=== PATIENT | female | born 1945 | race Caucasian/White ===

== ENCOUNTER 2016-05-04 14:53 | Outpatient (CLI) | payer MEDICARE | END 2016-05-04 14:54 | disposition home or self-care (01) | DX: Z78.0 Asymptomatic menopausal state (principal) ==

== ENCOUNTER 2016-08-30 10:41 | Outpatient (CLI) | payer MEDICARE | END 2016-08-30 10:42 | disposition home or self-care (01) | DX: Z12.31 Encounter for screening mammogram for malignant neoplasm of breast (principal); Z80.3 Family history of malignant neoplasm of breast ==

== ENCOUNTER 2016-12-12 08:23 | Outpatient (CLI) | payer MEDICARE ==
[2016-12-12 13:01] LABS: BASOPHILS # (AUTO) 0.1 10^3/uL (0.0-0.1); EOSINOPHILS # (AUTO) 0.2 10^3/uL (0.0-0.7); EOSINOPHILS % (AUTO) 3.4 %; HCT - HEMATOCRIT 41.2 % (37.0-47.0); LYMPHOCYTES # (AUTO) 2.3 10^3/uL (1.5-3.5); LYMPHOCYTES % (AUTO) 32.7 %; MEAN CORPUSCULAR HEMOGLOBIN 30.8 pg (27.0-31.0); MEAN CORPUSCULAR HGB CONC 33.9 g/dL (32.0-36.0); MEAN CORPUSCULAR VOLUME 90.9 fL (81.0-99.0); MONOCYTES # (AUTO) 0.6 10^3/uL (0.0-1.0); MONOCYTES % (AUTO) 7.9 %; RED BLOOD COUNT 4.52 10^6/uL (4.20-5.40); RED CELL DISTRIBUTION WIDTH 12.8 % (12.0-15.0); UNCORRECTED WHITE BLOOD COUNT 7.2 x10^3/uL; WHITE BLOOD COUNT 7.2 x10^3/uL (4.8-10.8)
[2016-12-12 13:27] LABS: ALBUMIN/GLOBULIN RATIO 1.2 (1.0-2.2); BILIRUBIN,TOTAL 0.5 mg/dL (0.2-1.0); BUN - BLOOD UREA NITROGEN 19 mg/dL (6-20); CALCIUM 8.9 mg/dL (8.5-10.3); CARBON DIOXIDE - CO2 29 mmol/L (21-32); CHLORIDE 102 mmol/L (101-111); CHOL/HDL RATIO 5.6 (<4.4); CHOLESTEROL 237 mg/dL; CREATININE 0.8 mg/dL (0.4-1.0); GFR - MDRD 71 (>89); GLUCOSE 145 mg/dL (70-100); HDL CHOLESTEROL 42 mg/dL; LDL/HDL RATIO 3.2 (<4.4); POTASSIUM 4.6 mmol/L (3.5-5.0); SODIUM 138 mmol/L (135-145); TOTAL PROTEIN 7.3 g/dL (6.7-8.2); TRIGLYCERIDES 298 mg/dL; VLDL CHOLESTEROL 60 mg/dL
[2016-12-12 14:26] LABS: HEMOGLOBIN A1C 0.7 g/dL
== END 2016-12-12 08:24 | disposition home or self-care (01) ==
LOC: LAB.WCP 08:23
PROVIDERS: ATTEND Family Medicine
DX: R73.01 Impaired fasting glucose (principal); Z78.0 Asymptomatic menopausal state; H91.93 Unspecified hearing loss, bilateral
CPT/HCPCS: 36415; 80053; 80061; 83036; 84443; 85025

== ENCOUNTER 2017-07-26 08:00 | Outpatient (CLI) | payer MEDICARE ==
[2017-07-26 13:02] LABS: HB2 TOTAL 14.8 g/dL; HEMOGLOBIN A1C 0.82 g/dL; HEMOGLOBIN A1C % 7.2 % (4.6-6.2)
[2017-07-26 13:08] LABS: ALBUMIN 3.9 g/dL (3.2-5.5); ALBUMIN/GLOBULIN RATIO 1.3 (1.0-2.2); ALKALINE PHOSPHATASE 43 IU/L (42-121); ALT ALANINE AMINOTRANSFERASE 39 IU/L (10-60); AST ASPARTATE AMINOTRANSFERASE 28 IU/L (10-42); BILIRUBIN,TOTAL 0.3 mg/dL (0.2-1.0); BUN - BLOOD UREA NITROGEN 19 mg/dL (6-20); CALCIUM 8.7 mg/dL (8.5-10.3); CARBON DIOXIDE - CO2 25 mmol/L (21-32); CHLORIDE 104 mmol/L (101-111); CHOL/HDL RATIO 4.5 (<4.4); CHOLESTEROL 200 mg/dL; CREATININE 0.8 mg/dL (0.4-1.0); GFR - MDRD 71 (>89); GLUCOSE 161 mg/dL (70-100); HDL CHOLESTEROL 44 mg/dL; LDL CHOLESTEROL,CALCULATED 115 mg/dL; LDL/HDL RATIO 2.6 (<4.4); SODIUM 136 mmol/L (135-145); VLDL CHOLESTEROL 41 mg/dL
== END 2017-07-26 08:01 | disposition home or self-care (01) ==
LOC: LAB.WCP 08:00
PROVIDERS: ATTEND Family Medicine
DX: B35.1 Tinea unguium (principal); E78.5 Hyperlipidemia, unspecified; R73.01 Impaired fasting glucose; Z79.890 Hormone replacement therapy; Z79.899 Other long term (current) drug therapy
CPT/HCPCS: 36415; 80053; 80061; 83036; 83721

== ENCOUNTER 2017-09-03 10:07 | Outpatient (CLI) | payer MEDICARE ==
--- NOTE | 2017-09-04 16:21 | Mammography Report ---
DIGITAL SCREENING MAMMOGRAM: 09/03/2017 CLINICAL INDICATION: A 71-year-old with family history of breast cancer for screening. COMPARISON: 08/2016, 06/2015, 12/2013, 11/2012, 06/2011, 04/2010. TECHNIQUE: Routine CC and MLO projections were obtained of the breasts. FINDINGS: Parenchymal tissue within the breasts is predominantly fatty replaced. There are no dominant masses, suspicious microcalcifications, or secondary signs of malignancy. In comparison to the previous studies, there are no significant changes. IMPRESSION: NO MAMMOGRAPHIC EVIDENCE OF MALIGNANCY. NO SIGNIFICANT INTERVAL CHANGES. RECOMMENDATION: Screening mammography is recommended annually. BIRADS category 1 - negative. STANDARD QUALIFYING STATEMENTS: 1. This examination was reviewed with the aid of Computed-Aided Detection (CAD). 2. A negative or benign imaging report should not delay biopsy if clinically suspicious findings are present. Consider surgical consultation if warranted. More than 5% of cancers are not identified by imaging. 3. Dense breasts may obscure an underlying neoplasm. TD: 09/04/2017 16:20
== END 2017-09-03 10:08 | disposition home or self-care (01) ==
LOC: DI.N 10:07
PROVIDERS: ATTEND Family Medicine
DX: Z12.31 Encounter for screening mammogram for malignant neoplasm of breast (principal); Z80.3 Family history of malignant neoplasm of breast
CPT/HCPCS: 77067

== ENCOUNTER 2018-04-18 12:49 | Outpatient (CLI) | payer MEDICARE | END 2018-04-18 12:50 | disposition home or self-care (01) | LOC: NS 12:49 | PROVIDERS: ATTEND Physician Assistant Medical | DX: Z71.3 Dietary counseling and surveillance (principal); E11.9 Type 2 diabetes mellitus without complications; Z79.84 Long term (current) use of oral hypoglycemic drugs | CPT/HCPCS: 97802 ==

== ENCOUNTER 2018-09-05 08:51 | Outpatient (CLI) | payer MEDICARE, OTHER ==
--- NOTE | 2018-09-05 14:00 | Mammography Report ---
Reason: SCREENING MAMMO Procedure Date: 09/05/2018 Accession Number: [id number] / [id number] Procedure: MGN - Screening Mammo Dig Bilat CPT Code: FULL RESULT: EXAM: Screening Mammo Dig Bilat DATE: 09/05/2018 9:20 AM CLINICAL HISTORY: Screening examination. Family history of breast cancer in the mother at age 75. The patient relates a history of 40 years of hormone therapy. TECHNIQUE: (B) - Bilateral CC and MLO views were obtained. COMPARISON: 09/03/2017 through 06/29/2015. PARENCHYMAL PATTERN: (A) - The breast(s) demonstrate(s) scattered fibroglandular densities. FINDINGS: There are coarse typically benign calcifications. There are no suspicious masses, calcifications, or areas of distortion. IMPRESSION: Benign findings. BI-RADS category 2. RECOMMENDATION: (ANNUAL) - Recommend routine annual screening mammography. BI-RADS CATEGORY: (2) - Benign Findings. STANDARD QUALIFYING STATEMENTS: 1. This examination was not reviewed with the aid of Computer-Aided Detection (CAD). 2. A negative or benign imaging report should not preclude biopsy if clinically suspicious findings are present. 3. Dense breasts may obscure an underlying neoplasm. 4. This examination was reviewed without the aid of 3D breast imaging (tomosynthesis).
== END 2018-09-05 08:52 | disposition home or self-care (01) ==
LOC: DI.N 08:51
DX: Z12.31 Encounter for screening mammogram for malignant neoplasm of breast (principal); Z80.3 Family history of malignant neoplasm of breast
CPT/HCPCS: 77067

== ENCOUNTER 2018-12-05 11:45 | Emergency (ER) | payer MEDICARE, OTHER ==
--- NOTE | 2018-12-05 12:02 | ED Physician Documentation ---
PD HPI ABD PAIN - Stated complaint Stated Complaint: NAUSEA/VOMITING - Chief complaint Chief Complaint: Abd Pain - History of Present Illness Timing - onset: How many days ago (4) Timing - duration: Days Timing - details: Still present Pain level max: 0 Pain level now: 0 Associated symptoms: Nausea, Vomiting, Diarrhea, Dizzy, Loss of appetite. No: Fever, Hematemesis, Constipation, Dysuria, Hematuria, Chest pain Similar symptoms before: Other (Patient had similar symptoms back in May and was told to discontinue her metformin which she did. She has not had any further blood sugar test since discontinuing her metformin and the symptoms had resolved.) Recently seen: Not recently seen (She called her primary care provider's office this morning was told by the staff to come to the emergency department because she could be dehydrated.) - Additional information Additional information: This is a 73-year-old woman who presents with her with complaints that 4 days ago she started a green smoothie detox it consists of fresh fruits and nuts that are mixed into a smoothie. This is supposed to be a 10-day cleanse and this is the only thing that she is consumed in the past 4 days. She immediately started feeling some nausea having some dry heaving and then this morning she started vomiting even when she drank water. She denies any pain. She feels like she has no energy and is "foggy". She is felt dizzy. She felt feverish but did not check her temperature yesterday. She has been experiencing some cardiac palpitations and shortness of breath with exertion but denied chest pain. She takes losartan and a baby aspirin daily. Patient had similar symptoms back in May. At that time she was told to discontinue her metformin which she did and the symptoms resolved. She also reports diarrhea for the past several weeks off and on without recent use of antibiotics. She status post hysterectomy and cholecystectomy. Denies history of diverticulitis. No other current acute illness. Review of Systems Constitutional: reports: Chills. denies: Fever Ears: denies: Ear pain Nose: denies: Rhinorrhea / runny nose Throat: denies: Sore throat Cardiac: reports: Palpitations. denies: Chest pain / pressure, Pedal edema Respiratory: reports: Dyspnea (With exertion). denies: Cough GI: reports: Nausea, Vomiting, Diarrhea. denies: Abdominal Pain, Hematemesis : denies: Dysuria Neurologic: reports: Generalized weakness. 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 - Present Medications Home Medications: Ambulatory Orders Medication Instructions Recorded Confirmed Aspirin 81 mg PO DAILY 09/17/17 09/17/17 Cholecalciferol (Vitamin D3) 2,000 unit PO DAILY 09/17/17 09/17/17 [Vitamin D] Estropipate 1.5 mg PO DAILY 09/17/17 09/17/17 Losartan Potassium 25 mg PO DAILY 09/17/17 09/17/17 Metformin HCl [Metformin HCl ER] 500 mg PO DAILY 09/17/17 09/17/17 [place]-3/Dha/Epa/Fish Oil [Fish Oil 1 each PO DAILY 09/17/17 09/17/17 1,000 mg Softgel] Potassium &Magnesium Aspartate [Ra 1 each PO DAILY 09/17/17 09/17/17 Potassium-Magnesium Asp 250] Metoclopramide [Reglan] 10 mg PO ACHS #20 tablet 12/05/18 - Allergies Allergies/Adverse Reactions: Allergies Allergy/AdvReac Type Severity Reaction Status Date / Time acetaminophen [From Vicodin] AdvReac Intermediate cannot Verified 09/17/17 16:41 wake up hydrocodone [From Vicodin] AdvReac Intermediate cannot Verified 09/17/17 16:41 wake up - Social History Does the pt smoke?: No Smoking Status: Never smoker Does the pt drink ETOH?: No Does the pt have substance abuse?: No - Immunizations Immunizations are current?: Yes PD ED PE NORMAL - Vitals Vital signs reviewed: Yes - General General: Alert and oriented X 3 - HEENT HEENT: Atraumatic, PERRL, Moist mucous membranes, Pharynx benign - Neck Neck: Supple, no meningeal sign - Cardiac Cardiac: RRR, No murmur, No rub, Strong equal pulses - Respiratory Respiratory: No respiratory distress, Clear bilaterally - Abdomen Abdomen: Normal bowel sounds, Soft, Non tender, Non distended, No organomegaly - Derm Derm: Normal color, Warm and dry - Extremities Extremities: No edema - Neuro Neuro: Alert and oriented X 3, Normal speech, Other (No gross neurological deficits.) - Psych Psych: Normal mood, Normal affect Results - Vitals Vitals: Vital Signs - 24 hr 12/05/18 12/05/18 11:51 14:25 Temperature 36.3 C L 36.6 C Heart Rate 76 67 Respiratory 18 12 Rate Blood Pressure 143/73 H 149/50 H O2 Saturation 98 98 Oxygen O2 Source Room air - EKG (time done) 1228 Rate: Rate (enter#) Rhythm: Sinus bradycardia Intervals: Normal MS QRS: Normal Ischemia: Normal ST segments Compare to prior EKG: Old EKG unavailable - Labs Labs: Laboratory Tests 12/05/18 12/05/18 12/05/18 12:20 13:00 13:00 WBC 9.9 RBC 4.82 Hgb 15.0 Hct 43.2 MCV 89.6 MCH 31.1 H MCHC 34.7 RDW 12.3 Plt Count 250 MPV 9.6 Neut # (Auto) 6.3 Lymph # (Auto) 2.3 [place] # (Auto) 0.7 Eos # (Auto) 0.5 Baso # (Auto) 0.1 Absolute Nucleated RBC 0.00 Nucleated RBC % 0.0 Sodium 137 Potassium 4.1 Chloride 102 Carbon Dioxide 22 Anion Gap 13.0 BUN 16 Creatinine 0.8 Estimated GFR (MDRD) 71 L Glucose 114 H Calcium 8.7 Troponin I High Sens Urine Color YELLOW Urine Clarity CLEAR Urine pH 5.5 Ur Specific [place] >=1.030 H Urine Protein NEGATIVE Urine Glucose (UA) NEGATIVE Urine Ketones >=80 H Urine Occult Blood TRACE-LYSE Urine Nitrite NEGATIVE Urine Bilirubin NEGATIVE Urine Urobilinogen 0.2 (NORMAL) Ur Leukocyte Esterase SMALL H Urine RBC 0-5 Urine WBC 6-10 H Ur Squamous Epith Cells MOD Squamous H Urine Bacteria Few Ur Microscopic Review INDICATED Urine Culture Comments NOT INDICATED 12/05/18 13:00 WBC RBC Hgb Hct MCV MCH MCHC RDW Plt Count MPV Neut # (Auto) Lymph # (Auto) [place] # (Auto) Eos # (Auto) Baso # (Auto) Absolute Nucleated RBC Nucleated RBC % Sodium Potassium Chloride Carbon Dioxide Anion Gap BUN Creatinine Estimated GFR (MDRD) Glucose Calcium Troponin I High Sens 8.1 Urine Color Urine Clarity Urine pH Ur Specific [place] Urine Protein Urine Glucose (UA) Urine Ketones Urine Occult Blood Urine Nitrite Urine Bilirubin Urine Urobilinogen Ur Leukocyte Esterase Urine RBC Urine WBC Ur Squamous Epith Cells Urine Bacteria Ur Microscopic Review Urine Culture Comments PD MEDICAL DECISION MAKING - ED course Complexity details: reviewed results, re-evaluated patient, d/w patient, d/w family (The patient was given a4 mg grams of Zofran IV. Her CBC was normal, the BMP was essentially normal, her glucose was 114. Urinalysis was contaminated and not considered necessary to culture it. She does not really have any urinary symptoms anyway. A trial of water was given after the Zofran and she said she again felt kind of bloated and nauseous. We will give her Reglan. There is no indication she has a surgical abdomen. We will reevaluate following the Reglan.) ED course: 1541: Patient does feel better after the Reglan. She was able to drink some water. She was belching. She reports that she is been feeling that, nausea and urged to go to the bathroom to have a bowel movement immediately after eating for several months now. She is been having this diarrhea. Of encouraged her to follow-up with her primary care provider perhaps evaluation with gastroenterology would be in order to sort out the symptoms. For symptom management in a place her on Reglan and have her stop the green smoothie detox currently. Patient states understanding and is encouraged to follow-up as needed. Departure - Departure Disposition: 01 Home, Self Care Clinical Impression: Nausea and vomiting Qualifiers: Vomiting type: unspecified Vomiting Intractability: unspecified Qualified Code(s): R11.2 - Nausea with vomiting, unspecified Condition: Good Instructions: ED Nausea Vomiting Follow-Up: Eldon Bagley MD [Primary Care Provider] - Prescriptions: Metoclopramide [Reglan] 10 mg PO ACHS #20 tablet Comments: Take the Reglan 30 minutes prior to meals as needed. May also use it at bedtime if you are feeling nauseous. Stop the green smoothie detox for the time being. Call and schedule an appointment with your primary care provider for follow-up and further work-up of your diarrhea and nausea. Return to the emergency department if you develop abdominal pain, you are vomiting and cannot keep anything down or develop fever.
[2018-12-05] MEDS ORDERED: ONDANSETRON 4 MG/2 ML VIAL IVP STA (12:13)
[2018-12-05] MEDS ORDERED: SODIUM CHLORIDE 0.9% 1,000 ML IV ONE (12:13)
[2018-12-05 13:12] LABS: BASOPHILS # (AUTO) 0.1 10^3/uL (0.0-0.1); BASOPHILS % (AUTO) 0.5 %; EOSINOPHILS # (AUTO) 0.5 10^3/uL (0.0-0.7); EOSINOPHILS % (AUTO) 4.5 %; LYMPHOCYTES # (AUTO) 2.3 10^3/uL (1.5-3.5); LYMPHOCYTES % (AUTO) 23.6 %; MEAN CORPUSCULAR HEMOGLOBIN 31.1 pg (27.0-31.0); MEAN CORPUSCULAR HGB CONC 34.7 g/dL (32.0-36.0); MEAN CORPUSCULAR VOLUME 89.6 fL (81.0-99.0); MEAN PLATELET VOLUME 9.6 fL (7.9-10.8); MONOCYTES # (AUTO) 0.7 10^3/uL (0.0-1.0); MONOCYTES % (AUTO) 7.1 %; NEUTROPHILS # (AUTO) 6.3 10^3/uL (1.5-6.6); PLT - PLATELET COUNT 250 10^3/uL (130-450); RED BLOOD COUNT 4.82 10^6/uL (4.20-5.40); RED CELL DISTRIBUTION WIDTH 12.3 % (12.0-15.0); WHITE BLOOD COUNT 9.9 x10^3/uL (4.8-10.8)
[2018-12-05 13:28] LABS: CALCIUM 8.7 mg/dL (8.5-10.3); CREATININE 0.8 mg/dL (0.4-1.0)
[2018-12-05 13:50] LABS: GLUCOSE, URINE (UA) NEGATIVE (NEGATIVE); KETONES,URINE (UA) >=80 mg/dL (NEGATIVE); LEUKOCYTE ESTERASE, URINE SMALL (NEGATIVE); NITRITE,URINE NEGATIVE (NEGATIVE); OCCULT BLOOD,URINE TRACE-LYSE (NEGATIVE); PH,URINE 5.5 PH (5.0-7.5); PROTEIN,URINE NEGATIVE (NEGATIVE); UROBILINOGEN,URINE 0.2 (NORMAL) E.U./dL (NORMAL)
[2018-12-05 13:53] LABS: CLARITY,URINE CLEAR (CLEAR)
[2018-12-05 13:54] LABS: BILIRUBIN,URINE NEGATIVE (NEGATIVE); ICTOTEST,URINE NEGATIVE
[2018-12-05 14:10] LABS: BACTERIA,URINE Few /HPF (None Seen); RBC,URINE 0-5 /HPF (0-5); SQUAMOUS EPITHELIAL CELL,UR MOD Squamous (<= Few)
[2018-12-05 14:26] VITALS: BP 149/50
[2018-12-05] MEDS ORDERED: METOCLOPRAMIDE 10 MG/2 ML VIAL IVP STA (14:45)
== END 2018-12-05 15:55 | disposition home or self-care (01) ==
LOC: ED 11:45
DX: R11.2 Nausea with vomiting, unspecified (principal); R19.7 Diarrhea, unspecified; R00.1 Bradycardia, unspecified; E11.9 Type 2 diabetes mellitus without complications; Z79.84 Long term (current) use of oral hypoglycemic drugs; I10 Essential (primary) hypertension; Z79.82 Long term (current) use of aspirin
CPT/HCPCS: 36415; 80048; 81001; 85025; 93005; 96361; 96374; 96375; 99284; J2765; 81003; 84484; 87086

== ENCOUNTER 2018-12-20 08:20 | Outpatient (CLI) | payer MEDICARE, OTHER ==
--- NOTE | 2018-12-20 10:56 | Ultrasound Report ---
Reason: GASTRITIS Procedure Date: 12/20/2018 Accession Number: [id number] / [id number] Procedure: US - Abdomen Limited CPT Code: FULL RESULT: EXAM: ABDOMEN ULTRASOUND LIMITED, RUQ EXAM DATE: 12/20/2018 09:10 AM. CLINICAL HISTORY: Gastritis. COMPARISON: None. TECHNIQUE: Real-time scanning was performed with static images obtained. FINDINGS: Liver: The liver is diffusely echogenic in appearance suggesting fibrofatty infiltration. No suspicious lesions or masses are identified. The liver measures 16.4 cm. Main portal vein flow: Hepatopetal. Gallbladder: Surgically absent. Biliary System: CBD measures 5 mm. No intrahepatic or extrahepatic ductal dilatation. Other: None. IMPRESSION: Fatty change of the liver status post cholecystectomy. No biliary dilation demonstrated. RADIA
== END 2018-12-20 08:21 | disposition home or self-care (01) ==
LOC: DI 08:20
PROVIDERS: ATTEND Family Medicine
DX: K76.0 Fatty (change of) liver, not elsewhere classified (principal); Z90.49 Acquired absence of other specified parts of digestive tract
CPT/HCPCS: 76705

== ENCOUNTER 2019-03-11 08:00 | Outpatient (CLI) | payer MEDICARE, OTHER ==
[2019-03-11 13:20] LABS: ALBUMIN 3.9 g/dL (3.2-5.5); ALBUMIN/GLOBULIN RATIO 1.2 (1.0-2.2); BILIRUBIN,TOTAL 0.5 mg/dL (0.2-1.0); CALCIUM 8.8 mg/dL (8.5-10.3); CREATININE 0.8 mg/dL (0.4-1.0); TOTAL PROTEIN 7.2 g/dL (6.7-8.2)
[2019-03-11 13:28] LABS: HB2 TOTAL 13.5 g/dL; HEMOGLOBIN A1C 0.63 g/dL; HEMOGLOBIN A1C % 6.4 % (4.6-6.2)
[2019-03-11 13:36] LABS: CREATININE,URINE 76.8 mg/dL
[2019-03-11 13:45] LABS: MICROALBUMIN,URINE < 0.2 mg/dL (0-300.0)
== END 2019-03-11 23:59 | disposition home or self-care (01) ==
LOC: LAB.WCP 08:00
PROVIDERS: ATTEND Family Medicine
DX: L21.9 Seborrheic dermatitis, unspecified (principal); E11.9 Type 2 diabetes mellitus without complications; E78.5 Hyperlipidemia, unspecified
CPT/HCPCS: 36415; 80053; 82043; 82570; 83036

== ENCOUNTER 2019-10-13 16:45 | Emergency (ER) | payer MEDICARE, OTHER ==
[2019-10-13 16:56] VITALS: BP 177/53
--- NOTE | 2019-10-13 17:01 | ED Physician Documentation ---
PD HPI UPPER EXT INJURY - Stated complaint Stated Complaint: LT THUMB LAC - Chief complaint Chief Complaint: Laceration - History obtained from History obtained from: Patient (She cut her left pinky finger with a knife yesterday and has persistent bleeding when she removes the Band-Aid) Review of Systems Constitutional: reports: Reviewed and negative Ears: reports: Reviewed and negative Nose: reports: Reviewed and negative PD PAST MEDICAL HISTORY - Past Medical History Cardiovascular: Hypertension, High cholesterol Endocrine/Autoimmune: Type 2 diabetes Psych: Depression - Past Surgical History 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 - Present Medications Home Medications: Ambulatory Orders Medication Instructions Recorded Confirmed Aspirin 81 mg PO DAILY 09/17/17 09/17/17 Cholecalciferol (Vitamin D3) 2,000 unit PO DAILY 09/17/17 09/17/17 [Vitamin D] Estropipate 1.5 mg PO DAILY 09/17/17 09/17/17 Losartan Potassium 25 mg PO DAILY 09/17/17 09/17/17 Metformin HCl [Metformin HCl ER] 500 mg PO DAILY 09/17/17 09/17/17 [place]-3/Dha/Epa/Fish Oil [Fish Oil 1 each PO DAILY 09/17/17 09/17/17 1,000 mg Softgel] Potassium &Magnesium Aspartate [Ra 1 each PO DAILY 09/17/17 09/17/17 Potassium-Magnesium Asp 250] Metoclopramide [Reglan] 10 mg PO ACHS #20 tablet 12/05/18 - Allergies Allergies/Adverse Reactions: Allergies Allergy/AdvReac Type Severity Reaction Status Date / Time acetaminophen [From Vicodin] AdvReac Intermediate cannot Verified 10/13/19 16:52 wake up hydrocodone [From Vicodin] AdvReac Intermediate cannot Verified 10/13/19 16:52 wake up - Social History Does the pt smoke?: No Smoking Status: Never smoker Does the pt drink ETOH?: No Does the pt have substance abuse?: No - Immunizations Immunizations are current?: Yes PD ED PE NORMAL - Vitals Vital signs reviewed: Yes - General General: Alert and oriented X 3, No acute distress - Extremities Extremities: Other (There is a very shallow laceration through the pulp and tip of the pinky, it is hemostatic on my examination without distal neurovascular compromise; It does not require suturing or any specific wound care other than dressing) - Neuro Neuro: Alert and oriented X 3, Normal speech Results - Vitals Vitals: Vital Signs - 24 hr 10/13/19 16:52 Temperature 36.8 C Heart Rate 65 Respiratory 16 Rate Blood Pressure 177/53 H O2 Saturation 99 Oxygen O2 Source Room air Departure - Departure Disposition: 01 Home, Self Care Clinical Impression: Laceration Condition: Good Record reviewed to determine appropriate education?: Yes Instructions: ED Laceration Hand Comments: As discussed, this wound does not require sutures, you can just keep it clean and dry, it is fine to wash with soap and water and then keep it covered with a Band-Aid. It may on and off bleed for the next couple of days but should heal completely.
== END 2019-10-13 17:06 | disposition home or self-care (01) ==
LOC: ED 16:45
DX: S61.217A Laceration without foreign body of left little finger without damage to nail, initial encounter (principal); W26.0XXA Contact with knife, initial encounter; Y93.G1 Activity, food preparation and clean up; I10 Essential (primary) hypertension; E11.9 Type 2 diabetes mellitus without complications; Z79.84 Long term (current) use of oral hypoglycemic drugs; Z79.82 Long term (current) use of aspirin
CPT/HCPCS: 99281; 99282

== ENCOUNTER 2019-10-27 07:17 | Outpatient (CLI) | payer MEDICARE, OTHER ==
[2019-10-27 12:50] LABS: BASOPHILS # (AUTO) 0.1 10^3/uL (0.0-0.1); BASOPHILS % (AUTO) 0.8 %; EOSINOPHILS # (AUTO) 0.2 10^3/uL (0.0-0.7); EOSINOPHILS % (AUTO) 3.2 %; HGB - HEMOGLOBIN 14.1 g/dL (12.0-16.0); LYMPHOCYTES # (AUTO) 2.6 10^3/uL (1.5-3.5); MEAN CORPUSCULAR HGB CONC 33.3 g/dL (32.0-36.0); MEAN CORPUSCULAR VOLUME 93.2 fL (81.0-99.0); MEAN PLATELET VOLUME 10.3 fL (7.9-10.8); MONOCYTES # (AUTO) 0.6 10^3/uL (0.0-1.0); MONOCYTES % (AUTO) 8.1 %; NEUTROPHILS # (AUTO) 4.1 10^3/uL (1.5-6.6); NEUTROPHILS % (AUTO) 53.8 %; PLT - PLATELET COUNT 266 10^3/uL (130-450); RED BLOOD COUNT 4.55 10^6/uL (4.20-5.40); RED CELL DISTRIBUTION WIDTH 13.1 % (12.0-15.0); WHITE BLOOD COUNT 7.5 x10^3/uL (4.8-10.8)
[2019-10-27 13:08] LABS: ALBUMIN 4.4 g/dL (3.2-5.5); ALBUMIN/GLOBULIN RATIO 1.6 (1.0-2.2); ALKALINE PHOSPHATASE 40 IU/L (42-121); ALT ALANINE AMINOTRANSFERASE 34 IU/L (10-60); AST ASPARTATE AMINOTRANSFERASE 25 IU/L (10-42); BILIRUBIN,TOTAL 0.8 mg/dL (0.2-1.0); BUN - BLOOD UREA NITROGEN 27 mg/dL (6-20); CALCIUM 8.9 mg/dL (8.5-10.3); CARBON DIOXIDE - CO2 27 mmol/L (21-32); CHLORIDE 102 mmol/L (101-111); CHOL/HDL RATIO 2.9 (<4.4); CHOLESTEROL 142 mg/dL; CREATININE 0.8 mg/dL (0.4-1.0); GLUCOSE 132 mg/dL (70-100); HDL CHOLESTEROL 49 mg/dL; LDL CHOLESTEROL,CALCULATED 71 mg/dL; LDL/HDL RATIO 1.4 (<4.4); SODIUM 136 mmol/L (135-145); TOTAL PROTEIN 7.2 g/dL (6.7-8.2); VLDL CHOLESTEROL 22 mg/dL
[2019-10-27 13:16] LABS: HB2 TOTAL 14.7 g/dL; HEMOGLOBIN A1C 0.58 g/dL; HEMOGLOBIN A1C % 5.8 % (4.6-6.2)
== END 2019-10-27 23:59 | disposition home or self-care (01) ==
LOC: LAB.WCP 07:17
PROVIDERS: ATTEND Family Medicine
DX: E11.9 Type 2 diabetes mellitus without complications (principal); G47.62 Sleep related leg cramps; R06.09 Other forms of dyspnea
CPT/HCPCS: 36415; 80053; 80061; 82043; 82570; 83036; 83721; 84443; 85025

== ENCOUNTER 2019-12-02 08:00 | Outpatient (CLI) | payer MEDICARE, OTHER ==
[2019-12-02 12:40] LABS: BUN - BLOOD UREA NITROGEN 19 mg/dL (6-20); CALCIUM 8.9 mg/dL (8.5-10.3); CARBON DIOXIDE - CO2 28 mmol/L (21-32); CHLORIDE 100 mmol/L (101-111); CHOLESTEROL 146 mg/dL; CREATININE 0.8 mg/dL (0.4-1.0); GLUCOSE 154 mg/dL (70-100); HDL CHOLESTEROL 49 mg/dL; LDL CHOLESTEROL,CALCULATED 60 mg/dL; LDL/HDL RATIO 1.2 (<4.4); SODIUM 138 mmol/L (135-145); VLDL CHOLESTEROL 37 mg/dL
[2019-12-02 12:52] LABS: BASOPHILS # (AUTO) 0.1 10^3/uL (0.0-0.1); BASOPHILS % (AUTO) 0.7 %; EOSINOPHILS # (AUTO) 0.2 10^3/uL (0.0-0.7); EOSINOPHILS % (AUTO) 2.9 %; HGB - HEMOGLOBIN 13.6 g/dL (12.0-16.0); LYMPHOCYTES # (AUTO) 2.6 10^3/uL (1.5-3.5); LYMPHOCYTES % (AUTO) 36.9 %; MEAN CORPUSCULAR HEMOGLOBIN 30.4 pg (27.0-31.0); MEAN CORPUSCULAR HGB CONC 32.1 g/dL (32.0-36.0); MEAN CORPUSCULAR VOLUME 94.6 fL (81.0-99.0); MEAN PLATELET VOLUME 10.4 fL (7.9-10.8); MONOCYTES # (AUTO) 0.5 10^3/uL (0.0-1.0); MONOCYTES % (AUTO) 7.4 %; NEUTROPHILS # (AUTO) 3.7 10^3/uL (1.5-6.6); NEUTROPHILS % (AUTO) 51.7 %; PLT - PLATELET COUNT 266 10^3/uL (130-450); RED BLOOD COUNT 4.48 10^6/uL (4.20-5.40); RED CELL DISTRIBUTION WIDTH 13.1 % (12.0-15.0); WHITE BLOOD COUNT 7.2 x10^3/uL (4.8-10.8)
== END 2019-12-02 23:59 | disposition home or self-care (01) ==
LOC: LAB.WCP 08:00
PROVIDERS: ATTEND Internal Medicine Cardiovascular Disease
DX: I10 Essential (primary) hypertension (principal)
CPT/HCPCS: 36415; 80048; 80061; 83721; 85025

== ENCOUNTER 2020-05-07 07:11 | Outpatient (CLI) | payer MEDICARE, OTHER ==
[2020-05-07 12:26] LABS: BASOPHILS # (AUTO) 0.1 10^3/uL (0.0-0.1); BASOPHILS % (AUTO) 0.7 %; EOSINOPHILS # (AUTO) 0.6 10^3/uL (0.0-0.7); EOSINOPHILS % (AUTO) 6.4 %; HCT - HEMATOCRIT 42.5 % (37.0-47.0); HGB - HEMOGLOBIN 13.7 g/dL (12.0-16.0); LYMPHOCYTES # (AUTO) 2.8 10^3/uL (1.5-3.5); LYMPHOCYTES % (AUTO) 31.2 %; MEAN CORPUSCULAR HEMOGLOBIN 29.8 pg (27.0-31.0); MEAN CORPUSCULAR HGB CONC 32.2 g/dL (32.0-36.0); MEAN CORPUSCULAR VOLUME 92.6 fL (81.0-99.0); MEAN PLATELET VOLUME 10.2 fL (7.9-10.8); MONOCYTES # (AUTO) 0.8 10^3/uL (0.0-1.0); MONOCYTES % (AUTO) 8.7 %; NEUTROPHILS # (AUTO) 4.6 10^3/uL (1.5-6.6); NEUTROPHILS % (AUTO) 52.7 %; PLT - PLATELET COUNT 303 10^3/uL (130-450); RED BLOOD COUNT 4.59 10^6/uL (4.20-5.40); RED CELL DISTRIBUTION WIDTH 12.9 % (12.0-15.0); WHITE BLOOD COUNT 8.8 x10^3/uL (4.8-10.8)
[2020-05-07 12:55] LABS: ESTIMATED AVERAGE GLUCOSE 174 mg/dL (70-100); HEMOGLOBIN A1c% 7.7 % (4.27-6.07)
[2020-05-07 13:04] LABS: ALBUMIN 4.3 g/dL (3.2-5.5); ALBUMIN/GLOBULIN RATIO 1.4 (1.0-2.2); BILIRUBIN,TOTAL 0.8 mg/dL (0.2-1.0); CALCIUM 9.4 mg/dL (8.5-10.3); CREATININE 0.7 mg/dL (0.4-1.0); POTASSIUM 4.3 mmol/L (3.5-5.0); TOTAL PROTEIN 7.4 g/dL (6.7-8.2)
[2020-05-07 13:25] LABS: CREATININE,URINE 105.9 mg/dL; MICROALBUM/CREATININE RATIO,UR 1.9 ug/mg (<30.0); MICROALBUMIN,URINE 0.2 mg/dL (0-300.0)
--- OUTSIDE RECORDS SUMMARY | 2020-05-12 01:55 | EXTERNAL MEDICAL SUMMARY RPT | Continuity of Care Document ---
:1945 Demographics Phone Unavailable Preferred Language Uruguayan Marital Status Unknown Adventism Affiliation Unknown Race Unknown Ethnic Group Unknown Author Organization [place] Address [address] [id number] Phone Care Team Providers Name Role Phone MD Unavailable Unavailable Mi Unavailable Unavailable Yudi Unavailable Unavailable Unavailable Unavailable Problems date description facility 2015-06-29 09:53 ENCNTR SCREEN MAMMOGRAM FOR [facility] MALIGNANT NEOPLASM OF BREAST 2015-09-16 11:25 SLEEP RELATED LEG CRAMPS [facility] 2016-05-04 14:53 ASYMPTOMATIC MENOPAUSAL STATE [facility] 2016-08-30 10:41 ENCNTR SCREEN MAMMOGRAM FOR [facility] MALIGNANT NEOPLASM OF BREAST 2016-08-30 10:41 FAMILY HISTORY OF MALIGNANT [facility] NEOPLASM OF BREAST 2016-12-12 08:23 UNSPECIFIED HEARING LOSS, [facility] BILATERAL 2016-12-12 08:23 IMPAIRED FASTING GLUCOSE [facility] 2016-12-12 08:23 ASYMPTOMATIC MENOPAUSAL STATE [facility] 2017-07-26 08:00 TINEA UNGUIUM [facility] 2017-07-26 08:00 HYPERLIPIDEMIA, UNSPECIFIED [facility] 2017-07-26 08:00 IMPAIRED FASTING GLUCOSE [facility] 2017-07-26 08:00 HORMONE REPLACEMENT THERAPY [facility] 2017-07-26 08:00 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 [facility] THERAPY 2017-09-03 10:07 ENCNTR SCREEN MAMMOGRAM FOR [facility] MALIGNANT NEOPLASM OF BREAST 2017-09-03 10:07 FAMILY HISTORY OF MALIGNANT [facility] NEOPLASM OF BREAST 2018-09-05 08:51 ENCNTR SCREEN MAMMOGRAM FOR [facility] MALIGNANT NEOPLASM OF BREAST 2018-09-05 08:51 FAMILY HISTORY OF MALIGNANT [facility] NEOPLASM OF BREAST 2018-12-05 11:45 TYPE 2 DIABETES MELLITUS [facility] WITHOUT COMPLICATIONS 2018-12-05 11:45 ESSENTIAL (PRIMARY) [facility] HYPERTENSION 2018-12-05 11:45 BRADYCARDIA, UNSPECIFIED [facility] 2018-12-05 11:45 NAUSEA WITH VOMITING, [facility] UNSPECIFIED 2018-12-05 11:45 DIARRHEA, UNSPECIFIED [facility] 2018-12-05 11:45 TREATMENT PLANT MECHANIC (CURRENT) USE OF [facility] ASPIRIN 2018-12-05 11:45 TREATMENT PLANT MECHANIC (CURRENT) USE OF ORAL [facility] HYPOGLYCEMIC DRUGS 2018-12-20 08:20 FATTY (CHANGE OF) LIVER, NOT [facility] ELSEWHERE CLASSIFIED 2018-12-20 08:20 ACQUIRED ABSENCE OF OTHER [facility] SPECIFIED PARTS OF DIGESTIVE TRACT 2019-03-11 08:00 TYPE 2 DIABETES MELLITUS [facility] WITHOUT COMPLICATIONS 2019-03-11 08:00 HYPERLIPIDEMIA, UNSPECIFIED [facility] 2019-03-11 08:00 SEBORRHEIC DERMATITIS, [facility] UNSPECIFIED 2019-10-27 07:17 TYPE 2 DIABETES MELLITUS [facility] WITHOUT COMPLICATIONS 2019-10-27 07:17 SLEEP RELATED LEG CRAMPS [facility] 2019-10-27 07:17 OTHER FORMS OF DYSPNEA [facility] 2019-12-02 08:00 ESSENTIAL (PRIMARY) [facility] HYPERTENSION 2020-02-26 00:00:00 [facility] 2020-02-26 00:00:00 [facility] smoker [facility] 2020-02-26 00:00:00 Removal of suture [facility] 2020-02-26 00:00:00 Alcohol use [facility] [place] [facility] 2020-02-26 00:00:00 Tobacco smoking status [facility] [place] [facility] 2020-02-26 00:00:00 Total score? [facility] 2020-02-26 00:00:00 Encounter for [facility] 2020-02-26 00:00:00 Tobacco use and exposure [facility] 2020-02-26 00:00:00 Exercise [facility] Prim florencia Care [facility] 2020-04-30 00:00:00 COMPREHENSIVE METABOLIC PANEL [facility] 2020-04-30 00:00:00 HGBA1C [facility] florencia [facility] 2020-04-30 00:00:00 CBC W/Diff/Plt [facility] 2020-04-30 00:00:00 MICROALBUMIN/CREAT R[facility] 2020-05-07 00:00 TYPE 2 DIABETES MELLITUS [facility] WITHOUT COMPLICATIONS 2020-05-07 07:11 TYPE 2 DIABETES MELLITUS [facility] WITHOUT COMPLICATIONS 2020-05-11 00:00:00 Diarrhea [facility] Prim fl[facility] Care [facility] 2020-05-11 00:00:00 Diarrhea, unspecified [facility] P rimary Care [facility] 2020-05-11 00:00:00 Health-related behavior [facility] 2020-05-11 00:00:00 Tobacco use and exposure [facility] 2020-05-11 00:00:00 Exercise [facility] Prim [facility] Care [facility] 2020-05-11 00:00:00 Never smoker [facility] Prim [facility] Care [facility] 2020-05-11 00:00:00 Alcohol use [facility] Prim fl[facility] Care [facility] 2020-05-11 00:00:00 Tobacco [facility] status [facility] 2020-05-11 00:00:00 Total score? [facility] Prim fl[facility] Care [facility] Allergies date description facility [facility] HYDROCODONE-[facility]AMINOPHEN [facility] acetaminophen [facility] HYDROCODONE-[facility]AMINOPHEN [facility] hydrocodone [facility] acetaminophen [facility] Medications date description facility 2020-05-11 00:00:00 null [facility] 2020-05-11 00:00:00 null [facility] 2020-05-11 00:00:00 null [facility] 2020-05-11 00:00:00 null [facility] 2020-05-11 00:00:00 HYDROXYZINE HCL [facility] 2020-05-11 00:00:00 METFORMIN HCL [facility] [facility] 2020-05-11 00:00:00 METFORMIN HCL [facility] 2020-05-11 00:00:00 HYDROXYZINE HCL [facility] [facility] Procedures date description facility 2020-04-30 00:00:00 MICROALBUMIN/CREAT RATIO [facility] [place] [facility] date description facility 2020-04-30 00:00:00 COMPREHENSIVE METABOLIC PANEL [facility] [place] [facility] date description facility 2020-04-30 00:00:00 HGBA1C [facility] [place] [facility] date description facility 2020-04-30 00:00:00 CBC W/Diff/Plt [facility] [place] [facility] date description facility 2020-04-30 00:00:00 [facility] [place] [facility] Results Social History date description facility 2020-02-26 00:00:00 [facility]oker [facility] [facility] date description facility 2020-05-11 00:00:00 Never smoker [facility] Social History date description facility 2020-02-26 00:00:00 Never smoker [facility] date description facility 2020-05-11 00:00:00 Never smoker [facility] date description facility [id number]
== END 2020-05-07 23:59 | disposition home or self-care (01) ==
LOC: LAB.WCP 07:11
PROVIDERS: ATTEND Family Medicine
DX: E78.5 Hyperlipidemia, unspecified (principal); E11.9 Type 2 diabetes mellitus without complications
CPT/HCPCS: 36415; 80053; 82043; 82570; 83036; 85025

== ENCOUNTER 2020-06-03 08:00 | Outpatient (CLI) | payer MEDICARE, OTHER | END 2020-06-03 23:59 | LOC: LAB.WCP 08:00 | PROVIDERS: ATTEND Family Medicine | DX: R19.7 Diarrhea, unspecified (principal); R19.4 Change in bowel habit | CPT/HCPCS: 81599; 82274; 87045; 87046; 87329; 87427 ==

== ENCOUNTER 2020-08-03 07:16 | Outpatient (CLI) | payer MEDICARE, OTHER ==
[2020-08-03 12:31] LABS: ESTIMATED AVERAGE GLUCOSE 151 mg/dL (70-100); HEMOGLOBIN A1c% 6.9 % (4.27-6.07)
[2020-08-03 12:33] LABS: CALCIUM 9.2 mg/dL (8.5-10.3); CREATININE 0.8 mg/dL (0.4-1.0); POTASSIUM 4.1 mmol/L (3.5-5.0)
== END 2020-08-03 23:59 | disposition home or self-care (01) ==
LOC: LAB.WCP 07:16
PROVIDERS: ATTEND Family Medicine
DX: E11.9 Type 2 diabetes mellitus without complications (principal)
CPT/HCPCS: 36415; 80048; 83036

== ENCOUNTER 2020-08-11 08:00 | Outpatient (CLI) | payer MEDICARE, OTHER ==
[2020-08-11 12:02] LABS: BASOPHILS # (AUTO) 0.1 10^3/uL (0.0-0.1); BASOPHILS % (AUTO) 0.9 %; EOSINOPHILS # (AUTO) 0.2 10^3/uL (0.0-0.7); EOSINOPHILS % (AUTO) 3.2 %; HCT - HEMATOCRIT 41.6 % (37.0-47.0); HGB - HEMOGLOBIN 13.9 g/dL (12.0-16.0); LYMPHOCYTES # (AUTO) 2.2 10^3/uL (1.5-3.5); LYMPHOCYTES % (AUTO) 32.8 %; MEAN CORPUSCULAR HEMOGLOBIN 30.3 pg (27.0-31.0); MEAN CORPUSCULAR HGB CONC 33.4 g/dL (32.0-36.0); MEAN CORPUSCULAR VOLUME 90.6 fL (81.0-99.0); MEAN PLATELET VOLUME 10.1 fL (7.9-10.8); MONOCYTES # (AUTO) 0.5 10^3/uL (0.0-1.0); MONOCYTES % (AUTO) 7.8 %; NEUTROPHILS # (AUTO) 3.7 10^3/uL (1.5-6.6); PLT - PLATELET COUNT 286 10^3/uL (130-450); RED BLOOD COUNT 4.59 10^6/uL (4.20-5.40); RED CELL DISTRIBUTION WIDTH 13.2 % (12.0-15.0); WHITE BLOOD COUNT 6.6 x10^3/uL (4.8-10.8)
[2020-08-11 12:10] LABS: ALBUMIN/GLOBULIN RATIO 1.2 (1.0-2.2); ALKALINE PHOSPHATASE 48 IU/L (42-121); ALT ALANINE AMINOTRANSFERASE 47 IU/L (10-60); AST ASPARTATE AMINOTRANSFERASE 32 IU/L (10-42); BILIRUBIN,TOTAL 0.8 mg/dL (0.2-1.0); BUN - BLOOD UREA NITROGEN 22 mg/dL (6-20); CALCIUM 9.5 mg/dL (8.5-10.3); CARBON DIOXIDE - CO2 27 mmol/L (21-32); CHLORIDE 105 mmol/L (101-111); CHOL/HDL RATIO 6.2 (<4.4); CHOLESTEROL 266 mg/dL; CREATININE 0.8 mg/dL (0.4-1.0); GFR - MDRD 71 (>89); GLUCOSE 184 mg/dL (70-100); HDL CHOLESTEROL 43 mg/dL; LDL CHOLESTEROL,CALCULATED 172 mg/dL; LIPASE 44 U/L (22-51); POTASSIUM 4.3 mmol/L (3.5-5.0); SODIUM 141 mmol/L (135-145); TOTAL PROTEIN 7.3 g/dL (6.7-8.2); TRIGLYCERIDES 257 mg/dL; VLDL CHOLESTEROL 51 mg/dL
[2020-08-11 12:19] LABS: THYROID STIMULATING HORMONE 3.69 uIU/mL (0.34-5.60)
== END 2020-08-11 23:59 | disposition home or self-care (01) ==
LOC: LAB.WCP 08:00
PROVIDERS: ATTEND Internal Medicine
DX: E11.9 Type 2 diabetes mellitus without complications (principal); K52.9 Noninfective gastroenteritis and colitis, unspecified
CPT/HCPCS: 36415; 80053; 80061; 81599; 83516; 83690; 83721; 83993; 84443; 85025; 87045; 87046; 87427; 87493

== ENCOUNTER 2020-08-11 11:49 | Outpatient (CLI) | payer MEDICARE, OTHER | END 2020-08-11 23:59 | disposition home or self-care (01) | LOC: LAB.R 11:49 | PROVIDERS: ATTEND Internal Medicine | DX: K52.9 Noninfective gastroenteritis and colitis, unspecified (principal) | CPT/HCPCS: 81599; 83993; 87045; 87046; 87493 ==

== ENCOUNTER 2020-08-16 11:31 | Outpatient (CLI) | payer MEDICARE, OTHER ==
--- NOTE | 2020-08-16 15:57 | Ultrasound Report ---
PROCEDURE: Ankle Brachial Index INDICATIONS: NOCTURNAL LEG CRAMPS TECHNIQUE: Ankle-brachial indices were obtained bilaterally and recorded. COMPARISONS: None. FINDINGS: Right ankle brachial index (DORYS): 1.0 Left ankle brachial index (DORYS): 1.0 Healing potential: Ankle pressures >55 mm Hg in non-diabetics and >80 mm Hg in diabetics are likely to achieve primary h ealing of ischemic foot ulcers. Toe pressures >30 mm Hg are likely to achieve primary healing of ischemic foot ulcers, toe or transme tatarsal amputations. IMPRESSION: Normal exam. Reviewed by: Namrata Powell MD on 08/16/2020 3:55 PM PDT Approved by: Namrata Powell MD on 08/16/2020 3:55 PM PDT Station ID: [id number]
== END 2020-08-16 11:32 | disposition home or self-care (01) ==
LOC: DI 11:31
PROVIDERS: ATTEND Internal Medicine
DX: G47.62 Sleep related leg cramps (principal)
CPT/HCPCS: 93922

== ENCOUNTER 2020-10-19 08:11 | Day surgery (SDC) | payer MEDICARE, OTHER ==
[2020-10-19] MEDS ORDERED: LACTATED RINGERS 1,000 ML IV ONE ×2 (08:28→11:04)
[2020-10-19] MEDS ORDERED: MIDAZOLAM 2 MG/2 ML VIAL ONE ×2 (10:23→10:38)
[2020-10-19] MEDS ORDERED: fentaNYL 250 MCG/5 ML VIAL ONE (10:24)
[2020-10-19 11:36] VITALS: BP 142/66
== END 2020-10-19 08:12 | disposition home or self-care (01) ==
LOC: SDS 08:11
PROVIDERS: ATTEND Surgery
PROC: 0DBE8ZX Excision of Large Intestine, Via Natural or Artificial Opening Endoscopic, Diagnostic (ICD-10-PCS; principal; 2020-10-19 09:30)
DX: K52.9 Noninfective gastroenteritis and colitis, unspecified (principal); K57.30 Diverticulosis of large intestine without perforation or abscess without bleeding; K64.8 Other hemorrhoids; K64.4 Residual hemorrhoidal skin tags
CPT/HCPCS: 45380; 81599; 83630; 87015; 87177; 87209; 87272; 87329; 87493; J3010; J7120; 87045; 87046

== ENCOUNTER 2020-11-11 07:03 | Outpatient (CLI) | payer MEDICARE, OTHER ==
[2020-11-11 11:43] LABS: CREATININE,URINE 121.3 mg/dL; MICROALBUM/CREATININE RATIO,UR 3.3 ug/mg (<30.0); MICROALBUMIN,URINE 0.4 mg/dL (0-300.0)
[2020-11-11 11:49] LABS: ALBUMIN 4.2 g/dL (3.2-5.5); ALBUMIN/GLOBULIN RATIO 1.2 (1.0-2.2); ALKALINE PHOSPHATASE 57 IU/L (42-121); ALT ALANINE AMINOTRANSFERASE 60 IU/L (10-60); AST ASPARTATE AMINOTRANSFERASE 35 IU/L (10-42); BILIRUBIN,TOTAL 0.8 mg/dL (0.2-1.0); BUN - BLOOD UREA NITROGEN 24 mg/dL (6-20); CALCIUM 9.3 mg/dL (8.5-10.3); CARBON DIOXIDE - CO2 27 mmol/L (21-32); CHLORIDE 102 mmol/L (101-111); CHOL/HDL RATIO 5.7 (<4.4); CHOLESTEROL 252 mg/dL; CREATININE 0.9 mg/dL (0.4-1.0); GFR - MDRD 62 (>89); GLUCOSE 169 mg/dL (70-100); HDL CHOLESTEROL 44 mg/dL; LDL CHOLESTEROL,CALCULATED 157 mg/dL; LDL/HDL RATIO 3.6 (<4.4); POTASSIUM 4.2 mmol/L (3.5-5.0); SODIUM 139 mmol/L (135-145); TOTAL PROTEIN 7.6 g/dL (6.7-8.2); TRIGLYCERIDES 256 mg/dL; VLDL CHOLESTEROL 51 mg/dL
[2020-11-11 12:00] LABS: THYROID STIMULATING HORMONE 4.68 uIU/mL (0.34-5.60)
[2020-11-11 12:04] LABS: ESTIMATED AVERAGE GLUCOSE 131 mg/dL (70-100); HEMOGLOBIN A1c% 6.2 % (4.27-6.07)
[2020-11-11 12:05] LABS: BASOPHILS # (AUTO) 0.1 10^3/uL (0.0-0.1); BASOPHILS % (AUTO) 0.9 %; EOSINOPHILS # (AUTO) 0.3 10^3/uL (0.0-0.7); EOSINOPHILS % (AUTO) 3.6 %; HCT - HEMATOCRIT 44.1 % (37.0-47.0); HGB - HEMOGLOBIN 14.1 g/dL (12.0-16.0); LYMPHOCYTES % (AUTO) 42.6 %; MEAN CORPUSCULAR HEMOGLOBIN 29.6 pg (27.0-31.0); MEAN CORPUSCULAR VOLUME 92.5 fL (81.0-99.0); MONOCYTES # (AUTO) 0.6 10^3/uL (0.0-1.0); MONOCYTES % (AUTO) 7.9 %; NEUTROPHILS # (AUTO) 3.1 10^3/uL (1.5-6.6); NEUTROPHILS % (AUTO) 44.7 %; PLT - PLATELET COUNT 298 10^3/uL (130-450); RED BLOOD COUNT 4.77 10^6/uL (4.20-5.40); RED CELL DISTRIBUTION WIDTH 12.7 % (12.0-15.0)
== END 2020-11-11 23:59 | disposition home or self-care (01) ==
LOC: LAB.WCP 07:03
PROVIDERS: ATTEND Family Medicine
DX: E11.9 Type 2 diabetes mellitus without complications (principal)
CPT/HCPCS: 36415; 80053; 80061; 82043; 82570; 83036; 83721; 84443; 85025

== ENCOUNTER 2020-11-18 14:00 | Outpatient (CLI) | payer MEDICARE, OTHER ==
--- NOTE | 2020-11-18 15:00 | SLEEP CARE CONSULTATION ---
Information from patient questionnaire entered by Peri Clay. I have reviewed and concur with the information entered by Peri Clay. This document represents the service I personally performed and the decisions made by , Anayeli Garcia ARNP. History of Present Illness Service Date and Time: 11/18/2020 1400 Reason for Visit: New patient Chief Complaint: reports: Unrefreshed sleep, Snoring, Excessive daytime sleepiness, Frequent awakenings at night. denies: Observed pauses in breathing Date of Onset: A while Usual bedtime: 8-9 pm Time it takes to fall asleep: at least 30 minutes Snores at night: Yes (lightly) Observed to quit breathing while asleep: No Sleeps alone due to snoring: No Number of times waking at night: 3 Reasons for waking at night: reports: Bathroom, Other (dry mouth). denies: Choking, Snoring, Gasping for air Toss, Turn, or Twitch while sleeping: Yes (turn) Recalls having dreams: No (seldom dreams) Usually gets out of bed at: 4-6 am Feels refreshed in the morning: No Morning headache: No Sleepy or fatigued during the day: Yes Ever fallen asleep while driving: No Takes day naps: Yes (daily if she sits down with her for about an hour) Dreams during day naps: No Prior sleep studies: No Additional HPI information: I had the pleasure of seeing ANA JASSO today regarding the possibility of her having a sleep disorder. Her current complaints are light snoring, frequent night awakenings, insomnia, daytime sleepiness and unrefreshed sleep. She has had difficulty sleeping for a long time. She does snore loudly when very fatigue but this is not normal. She usually wakes up 3-4 times a night to use the restroom or with a very dry mouth. Once she is woken up she has difficulty falling asleep. She has a history of diabetes. - Parasomnia Symptoms Ever been unable to move upon waking from sleep: No Walks in sleep: No Talks in sleep: No Ever acted out dreams in sleep: No Ever felt weak in the knees when startled or emotional: No Bothered by creepy, crawly, restless sensations in legs: No Problems with memory or concentration: Yes (memory, short term) Subjective Initial [place] Sleepiness Scale score: 9 (in 2020) Past Medical History Past Medical History: reports: Hypertension, Diabetes (pre-diabetes), Other (heart murmur) Social History The patient's occupation is a [employer]. Patient is and lives in [place]. Have you smoked in the past 12 months: No Alcohol use: No Caffeine use: Yes Caffeine amount and frequency: 2 drinks a day Family History Family history of sleep disordered breathing: No Allergies and Home Medications Drug allergies reviewed: Yes (Vicodin) Home medication list reviewed: Yes Allergy and home medication list: Losartan Glimepiride Vitamin D [place] supplement Review of Systems Cardiovascular: reports: high blood pressure, leg or foot swelling Respiratory: reports: shortness of breath Gastrointestinal: reports: diarrhea. 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 Suspected Obstructive Sleep Apnea-Hypopnea Syndrome, as suggested by a history of irregular snoring, frequent awakening during the night, unrefreshed sleep, cognitive impairment, and excessive daytime sleepiness. Narrow oropharynx and obesity are common predisposing factors for obstructive sleep apnea-hypopnea syndrome. I recommend proceeding to polysomnography to confirm the diagnosis and to assess severity. If the patient has significant sleep disordered breathing, a manual CPAP titration study will also be performed to find the optimal treatment pressure. I informed the patient of what the sleep studies involve and after some discussion, obtained agreement to proceed. The pathophysiology of obstructive sleep apnea-hypopnea syndrome was discussed with the patient and health risks of cardiovascular and cerebrovascular disease if not treated. AASM brochure for obstructive sleep apnea-hypopnea syndrome given and reviewed. 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 Patient agreed to plan. * Schedule polysomnography +- manual CPAP titration study and return in 1-2 weeks after the study to discuss result and initiate therapy. * Avoid long distance driving or driving when feeling sleepy. * Avoid alcohol, sedative and muscle relaxant around bedtime. * Attempt to lose weight. * Review instructions provided by trained office staff on how to prepare for the sleep study. * Return for follow-up after sleep study completed. Counseling Topics: Weight loss health impact Visit Type: In Office Time Spent with Patient (minutes): 30 Provider Statement: I spent 100% of the Face to Face Visit with the patient with greater than 50% spent counseling the patient and coordination of care.
[2020-11-18 15:01] VITALS: BP 126/62
== END 2020-11-18 14:01 | disposition home or self-care (01) ==
LOC: SC 14:00
PROVIDERS: ATTEND Nurse Practitioner Family
DX: G47.10 Hypersomnia, unspecified (principal); G47.8 Other sleep disorders; R41.89 Other symptoms and signs involving cognitive functions and awareness; E66.9 Obesity, unspecified; Z68.32 Body mass index [BMI] 32.0-32.9, adult; R06.83 Snoring
CPT/HCPCS: 99203; G0463; 99212

== ENCOUNTER 2020-11-26 13:52 | Outpatient (CLI) | payer MEDICARE, OTHER ==
--- NOTE | 2020-11-29 14:21 | Mammography Report ---
BILATERAL DIGITAL SCREENING MAMMOGRAM 3D/2D: 11/26/2020 CLINICAL: Routine screening. Comparison is made to exams dated: 09/23/2019 ultrasound, 09/23/2019 mammogram - [facility], 2018 mammogram, 09/03/2017 mammogram, and 08/30/2016 mammogram - [facility]. There are scattered fibroglandular elements in both breasts. There are benign vascular calcifications in the right breast. No significant masses, calcifications, or other findings are seen in either breast. There has been no significant interval change. IMPRESSION: BENIGN There is no mammographic evidence of malignancy. A 1 year screening mammogram is recommended. This exam was interpreted at Station ID: [id number]. NOTE: For mammograms, a report in lay terms will be sent to the patient. Approximately 15% of breast malignancies will not be visualized mammographically. In the management of a palpable breast mass, a negative mammogram must not discourage biopsy of a clinically suspicious lesion. Electronically Signed By: Og Gore M.D. [facility] [place]:11/26/2020 16:02:28 ACR BI-RADS Category 2: Benign Finding(s) 3342F PARENCHYMAL PATTERN: (A) - The breast(s) demonstrate(s) scattered fibroglandular densities. BI-RADS CATEGORY: (2) - 2 RECOMMENDATION: (ANNUAL) - Recommend routine annual screening mammography. [id number] 1 year screening LATERALITY: (B)
== END 2020-11-26 13:53 | disposition home or self-care (01) ==
LOC: DI 13:52
DX: Z12.31 Encounter for screening mammogram for malignant neoplasm of breast (principal)

== ENCOUNTER 2020-12-01 19:29 | Outpatient (CLI) | payer MEDICARE, OTHER | END 2020-12-01 19:30 | disposition home or self-care (01) | LOC: SC 19:29 | PROVIDERS: ATTEND Nurse Practitioner Family | DX: G47.33 Obstructive sleep apnea (adult) (pediatric) (principal); G47.61 Periodic limb movement disorder | CPT/HCPCS: 95810 ==

== ENCOUNTER 2020-12-16 10:14 | Outpatient (CLI) | payer MEDICARE, OTHER ==
--- NOTE | 2020-12-16 11:07 | SLEEP CARE CONSULTATION ---
Information from patient questionnaire entered by Peri Clay. I have reviewed and concur with the information entered by Peri Clay. This document represents the service I personally performed and the decisions made by , Anayeli Garcia ARNP. History of Present Illness Service Date and Time: 12/16/2020 1014 Initial [place] Sleepiness Scale score: 9 (in 2020) Current [place] Sleepiness Scale score: 3 Additional HPI information: ANA JASSO returns for follow up and results of the recently performed polysomnography. I explained the pathophysiology behind obstructive sleep apnea. We then spent quite a bit of time discussing different treatment options. For mild obstructive sleep apnea, surgery and oral appliance are alternatives to nasal CPAP therapy but in moderate or severe cases, nasal CPAP is the most effective and reliable treatment. I explained how CPAP machine works with sample devices [employer]oft Dreamstation and [facility]oby [id number]. [facility] patient education PAP tips and Non Pap treatment pamphlets reviewed and given to patient. Patient was cautioned about risks of drowsy driving until sleepiness symptoms resolve. Sleep Study - Results Type of Sleep Study: Polysomnography Prior sleep studies: No Polysomnography/Home Sleep Study results: IMPRESSION: The quality of the study is good. The patient had slightly reduced sleep efficiency due to a few awakenings in the first half of the night. The sleep architecture was normal. Respiratory monitoring showed mild obstructive sleep apnea-hypopnea (AHI = 5.3) associated with mild oxyhemoglobin desaturation and mild hypoxia (ritika oxygen saturation of 85%). The respiratory events occurred mainly during REM sleep. The patient did not sleep supine during this study (supine AHI = 0.0; non-supine = 5.35). Snore was loud in intensity. There was severe periodic leg movement of sleep not associated with sleep fragmentation. Cardiac rhythm was normal sinus rhythm without significant arrhythmia. No abnormal behavior (parasomnia) observed during the night. Allergies and Home Medications Home medication list reviewed: Yes (no changes) Review of Systems Review of systems same as previous: Yes (no changes) Physical Exam Heart Rate: 54 O2 Saturation: 97 Height: 5 ft 2 in Weight: 176 lb Body Mass Index: 32.1 BMI Classification: Obese Impression and Plan 1. Obstructive Sleep Apnea-Hypopnea Syndrome, mild, with lowest oxygen saturation of 85%. Obviously this is the cause of the patients symptoms of unrefreshed sleep, and excessive daytime sleepiness. Positive pressure therapy could benefit hypertension and diabetes. After some discussion, the patient opted to go with the oral appliance. AAS non PAP treatment patient education reviewed and given to patient with list of accredited dentists and one non- accredited dentist in general area to call for a consult. A prescription was given to start process. Patient advised to check insurance to see if oral appliance is covered. Some dentists do not take Medicare. I will have patient follow up in 3 months to check effectiveness of treatment. If reduction of symptoms and comfortable with treatment, a polysomnography will be ordered using the oral appliance to check efficacy of treatment. 2. Periodic limb movement, severe, that did not fragment patients sleep. Periodic limb movement of sleep (PLMS) is characterized by episodes of repetitive limb movements that occur during sleep and usually involve the lower limbs. The etiology is unknown but can be associated with restless leg syndrome (RLS), neuropathy, spinal cord diseases, kidney disease, rheumatological diso rders, narcolepsy, obstructive sleep apnea, and REM sleep behavior disorder. Other factors that can increase PLMS and/or RLS are heredity and iron deficiency as reflected by a low serum ferritin level below 50 to 75mcg / L. Several medications can precipitate or aggravate PLMS such as selective serotonin re- uptake inhibitor antidepressants, tricyclic antidepressants, lithium, and dopamine receptor antagonists with the exception of bupropion. Patient was advised to follow up with PCP for further evaluation. * Oral appliance. * Attempt to lose weight. * Avoid alcohol consumption near bedtime. * The patient is again cautioned about driving until sleepiness completely resolves. * Return one month after oral appliance obtained. I will assess response to therapy and compliance at that time. Counseling Topics: Weight loss health impact Visit Type: In Office Time Spent with Patient (minutes): 29 Provider Statement: I spent 100% of the Face to Face Visit with the patient with greater than 50% spent counseling the patient and coordination of care.
== END 2020-12-16 10:15 | disposition home or self-care (01) ==
LOC: SC 10:14
PROVIDERS: ATTEND Nurse Practitioner Family
DX: G47.33 Obstructive sleep apnea (adult) (pediatric) (principal); G47.61 Periodic limb movement disorder; E66.9 Obesity, unspecified; Z68.32 Body mass index [BMI] 32.0-32.9, adult
CPT/HCPCS: 99213; G0463; 99212

== ENCOUNTER 2021-02-16 08:00 | Outpatient (CLI) | payer MEDICARE, OTHER ==
[2021-02-16 12:01] LABS: BUN - BLOOD UREA NITROGEN 22 mg/dL (6-20); CALCIUM 9.5 mg/dL (8.5-10.3); CARBON DIOXIDE - CO2 27 mmol/L (21-32); CHLORIDE 101 mmol/L (101-111); CHOLESTEROL 175 mg/dL; CREATININE 0.8 mg/dL (0.4-1.0); GFR - MDRD 70 (>89); GLUCOSE 194 mg/dL (70-100); HDL CHOLESTEROL 44 mg/dL; LDL CHOLESTEROL,CALCULATED 95 mg/dL; LDL/HDL RATIO 2.2 (<4.4); POTASSIUM 4.6 mmol/L (3.5-5.0); SODIUM 137 mmol/L (135-145); TRIGLYCERIDES 181 mg/dL; VLDL CHOLESTEROL 36 mg/dL
[2021-02-16 12:15] LABS: ESTIMATED AVERAGE GLUCOSE 137 mg/dL (70-100); HEMOGLOBIN A1c% 6.4 % (4.27-6.07)
== END 2021-02-16 23:55 | disposition home or self-care (01) ==
LOC: LAB.WCP 08:00
PROVIDERS: ATTEND Internal Medicine
DX: E11.9 Type 2 diabetes mellitus without complications (principal)
CPT/HCPCS: 36415; 80048; 80061; 83036; 83721

== ENCOUNTER 2021-04-04 07:10 | Outpatient (CLI) | payer MEDICARE, OTHER ==
[2021-04-04 12:46] LABS: ALBUMIN/GLOBULIN RATIO 1.2 (1.0-2.2); ALKALINE PHOSPHATASE 54 IU/L (42-121); ALT ALANINE AMINOTRANSFERASE 40 IU/L (10-60); AST ASPARTATE AMINOTRANSFERASE 28 IU/L (10-42); BILIRUBIN,TOTAL 0.7 mg/dL (0.2-1.0); BUN - BLOOD UREA NITROGEN 23 mg/dL (6-20); CALCIUM 9.3 mg/dL (8.5-10.3); CARBON DIOXIDE - CO2 26 mmol/L (21-32); CHLORIDE 103 mmol/L (101-111); CHOL/HDL RATIO 3.7 (<4.4); CHOLESTEROL 165 mg/dL; CREATININE 0.8 mg/dL (0.4-1.0); GFR - MDRD 70 (>89); GLUCOSE 186 mg/dL (70-100); HDL CHOLESTEROL 45 mg/dL; LDL CHOLESTEROL,CALCULATED 92 mg/dL; POTASSIUM 4.4 mmol/L (3.5-5.0); SODIUM 137 mmol/L (135-145); TOTAL PROTEIN 7.3 g/dL (6.7-8.2); TRIGLYCERIDES 141 mg/dL; VLDL CHOLESTEROL 28 mg/dL
[2021-04-04 13:09] LABS: CREATININE,URINE 99.4 mg/dL; MICROALBUMIN,URINE 0.3 mg/dL (0-300.0)
[2021-04-04 13:45] LABS: ESTIMATED AVERAGE GLUCOSE 143 mg/dL (70-100); HEMOGLOBIN A1c% 6.6 % (4.27-6.07)
== END 2021-04-04 23:59 | disposition home or self-care (01) ==
LOC: LAB.WCP 07:10
PROVIDERS: ATTEND Internal Medicine
DX: E11.9 Type 2 diabetes mellitus without complications (principal); G25.81 Restless legs syndrome
CPT/HCPCS: 36415; 80053; 80061; 82043; 82570; 82728; 83036; 83721

== ENCOUNTER 2021-05-17 07:00 | Outpatient (CLI) | payer MEDICARE, OTHER ==
[2021-05-17 12:27] LABS: ESTIMATED AVERAGE GLUCOSE 157 mg/dL (70-100); HEMOGLOBIN A1c% 7.1 % (4.27-6.07)
== END 2021-05-17 23:59 | disposition home or self-care (01) ==
LOC: LAB.WCP 07:00
PROVIDERS: ATTEND Internal Medicine
DX: E11.9 Type 2 diabetes mellitus without complications (principal)
CPT/HCPCS: 36415; 83036

== ENCOUNTER 2021-08-19 12:29 | Outpatient (CLI) | payer MEDICARE, OTHER ==
--- NOTE | 2021-08-19 16:53 | CT Report ---
PROCEDURE: CT paranasal sinus INDICATIONS: SINUSITIS TECHNIQUE: Noncontrast 3.0 mm axial images acquired from the frontal sinuses to the mid-sella, with coronal and sagittal reformats. For radiation dose reduction, the following was used: automated exposure control , adjustment of mA and/or kV according to patient size. COMPARISON: None. FINDINGS: Image quality: Excellent. Maxillary Sinuses: Bilateral mucosal thickening with air-fluid levels noted. Is obstruction of both o stiomeatal units. No Sylvia cells. Ethmoid Air Cells: Complete opacification of the ethmoid air cells with mucosal thickening. No remode ling present. Sphenoid Sinuses: Mucosal thickening with debris and fluid filling the sphenoid sinus. The Frontal Sinuses: Sphenoethmoidal recesses are obstructed. Mucosal thickening without air-fluid levels present. There is obstruction at the recesses. Miscellaneous: Visualized intra-orbital contents are normal. No guillermo bullosa. No nasal septal de viation. IMPRESSION: Pansinusitis. Fluid and debris obstructing the paranasal sinus egress tracts, as above. No remodeling . Reviewed by: Stewart Horne MD on 08/19/2021 3:51 PM SHIRA Approved by: Stewart Horne MD on 08/19/2021 3:51 PM [facility] Station ID: [id number]
== END 2021-08-19 12:30 | disposition home or self-care (01) ==
LOC: DI 12:29
PROVIDERS: ATTEND Internal Medicine
DX: J32.4 Chronic pansinusitis (principal)

== ENCOUNTER 2021-08-22 07:05 | Outpatient (CLI) | payer MEDICARE, OTHER ==
[2021-08-22 12:20] LABS: BASOPHILS # (AUTO) 0.1 10^3/uL (0.0-0.1); EOSINOPHILS % (AUTO) 14.6 %; HCT - HEMATOCRIT 41.4 % (37.0-47.0); HGB - HEMOGLOBIN 13.8 g/dL (12.0-16.0); LYMPHOCYTES # (AUTO) 2.6 10^3/uL (1.5-3.5); LYMPHOCYTES % (AUTO) 38.3 %; MEAN CORPUSCULAR HEMOGLOBIN 30.3 pg (27.0-31.0); MEAN CORPUSCULAR HGB CONC 33.3 g/dL (32.0-36.0); MEAN PLATELET VOLUME 10.1 fL (7.9-10.8); MONOCYTES # (AUTO) 0.6 10^3/uL (0.0-1.0); MONOCYTES % (AUTO) 8.1 %; NEUTROPHILS # (AUTO) 2.6 10^3/uL (1.5-6.6); NEUTROPHILS % (AUTO) 37.9 %; PLT - PLATELET COUNT 278 10^3/uL (130-450); RED BLOOD COUNT 4.55 10^6/uL (4.20-5.40); WHITE BLOOD COUNT 6.9 x10^3/uL (4.8-10.8)
[2021-08-22 12:28] LABS: SLIDE REVIEW? Indicated
[2021-08-22 12:54] LABS: ALBUMIN/GLOBULIN RATIO 1.2 (1.0-2.2); ALKALINE PHOSPHATASE 55 IU/L (42-121); ALT ALANINE AMINOTRANSFERASE 42 IU/L (10-60); AST ASPARTATE AMINOTRANSFERASE 29 IU/L (10-42); BILIRUBIN,TOTAL 0.9 mg/dL (0.2-1.0); BUN - BLOOD UREA NITROGEN 24 mg/dL (6-20); CALCIUM 9.1 mg/dL (8.5-10.3); CARBON DIOXIDE - CO2 25 mmol/L (21-32); CHLORIDE 102 mmol/L (101-111); CHOL/HDL RATIO 4.3 (<4.4); CHOLESTEROL 175 mg/dL; CREATININE 0.8 mg/dL (0.4-1.0); GFR - MDRD 70 (>89); GLUCOSE 198 mg/dL (70-100); HDL CHOLESTEROL 41 mg/dL; LDL CHOLESTEROL,CALCULATED 95 mg/dL; LDL/HDL RATIO 2.3 (<4.4); LIPASE 44 U/L (22-51); POTASSIUM 4.5 mmol/L (3.5-5.0); SODIUM 137 mmol/L (135-145); TOTAL PROTEIN 7.4 g/dL (6.7-8.2); TRIGLYCERIDES 197 mg/dL; VLDL CHOLESTEROL 39 mg/dL
[2021-08-22 13:54] LABS: ESTIMATED AVERAGE GLUCOSE 148 mg/dL (70-100); HEMOGLOBIN A1c% 6.8 % (4.27-6.07)
== END 2021-08-22 07:06 | disposition home or self-care (01) ==
LOC: LAB.N 07:05
PROVIDERS: ATTEND Internal Medicine
DX: E11.9 Type 2 diabetes mellitus without complications (principal); R10.13 Epigastric pain; R68.2 Dry mouth, unspecified; R19.7 Diarrhea, unspecified
CPT/HCPCS: 36415; 80053; 80061; 81599; 83036; 83690; 83721; 85025; 86235

== ENCOUNTER 2022-03-22 07:22 | Outpatient (CLI) | payer MEDICARE, OTHER ==
--- NOTE | 2022-03-22 13:11 | XRAY Report ---
PROCEDURE: Knee 2 View RT INDICATIONS: R KNEE PX TECHNIQUE: 2 views of the right knee(s) were acquired. COMPARISON: None. FINDINGS: Bones: No fractures or dislocations. No suspicious bony lesions. There is moderate medial and mild to moderate lateral as well as patellofemoral compartment narrowing. No erosions are present. Soft tissues: Minimal joint effusion. No suspicious soft tissue calcifications. IMPRESSION: Tricompartmental arthritic change most severe medially. No visualized acute fracture or dislocation. However, occult injury cannot be excluded. Recommend david rt interval imaging follow-up in 7-10 days as clinically indicated for additional evaluation. Reviewed by: Namrata Powell MD on 03/22/2022 1:10 PM PST Approved by: Namrata Powell MD on 03/22/2022 1:10 PM [facility] Station ID: [id number]
== END 2022-03-22 07:23 | disposition home or self-care (01) ==
LOC: DI.N 07:22
PROVIDERS: ATTEND Internal Medicine
DX: M17.11 Unilateral primary osteoarthritis, right knee (principal)

== ENCOUNTER 2022-03-30 08:00 | Outpatient (CLI) | payer MEDICARE, OTHER ==
--- NOTE | 2022-03-30 17:01 | XRAY Report ---
PROCEDURE: Knee 3 View RT INDICATIONS: RIGHT KNEE PAIN TECHNIQUE: 3 views of the right knee(s) were acquired. COMPARISON: X-ray right knee, 2 views, 03/22/2022. FINDINGS: Bones: No fractures or dislocations. No suspicious bony lesions. There is mild tricompartmental kne e joint degeneration. There is joint space narrowing, mild-to moderate in the medial femorotibial com partment of the right knee and severe in the medial femorotibial compartment of the left knee. Possib le small intra-articular bodies in the intercondylar notch of the right knee. Soft tissues: No joint effusion. No suspicious soft tissue calcifications. IMPRESSION: 1. Mild osteoarthritis of the right knee. 2. Possible intra-articular bodies in the right knee. Reviewed by: Hedy Yang MD on 03/30/2022 4:59 PM PST Approved by: Hedy Yang MD on 03/30/2022 4:59 PM PST Station ID: [id number]
== END 2022-03-30 23:59 | disposition home or self-care (01) ==
LOC: DI.WOS 08:00
PROVIDERS: ATTEND Physician Assistant Surgical
DX: M17.11 Unilateral primary osteoarthritis, right knee (principal)

== ENCOUNTER 2022-05-22 07:10 | Outpatient (CLI) | payer MEDICARE, OTHER ==
[2022-05-22 12:10] LABS: BASOPHILS # (AUTO) 0.1 10^3/uL (0.0-0.1); BASOPHILS % (AUTO) 0.7 %; EOSINOPHILS # (AUTO) 0.6 10^3/uL (0.0-0.7); EOSINOPHILS % (AUTO) 6.7 %; HCT - HEMATOCRIT 41.3 % (37.0-47.0); HGB - HEMOGLOBIN 13.6 g/dL (12.0-16.0); LYMPHOCYTES # (AUTO) 3.1 10^3/uL (1.5-3.5); LYMPHOCYTES % (AUTO) 36.3 %; MEAN CORPUSCULAR HGB CONC 32.9 g/dL (32.0-36.0); MEAN PLATELET VOLUME 10.2 fL (7.9-10.8); MONOCYTES # (AUTO) 0.7 10^3/uL (0.0-1.0); MONOCYTES % (AUTO) 7.7 %; NEUTROPHILS # (AUTO) 4.1 10^3/uL (1.5-6.6); NEUTROPHILS % (AUTO) 48.4 %; PLT - PLATELET COUNT 286 10^3/uL (130-450); RED BLOOD COUNT 4.54 10^6/uL (4.20-5.40); RED CELL DISTRIBUTION WIDTH 12.7 % (12.0-15.0); WHITE BLOOD COUNT 8.4 x10^3/uL (4.8-10.8)
[2022-05-22 12:26] LABS: CREATININE,URINE 137.3 mg/dL; MICROALBUM/CREATININE RATIO,UR 5.1 ug/mg (<30.0); MICROALBUMIN,URINE 0.7 mg/dL (0-300.0)
[2022-05-22 12:46] LABS: ESTIMATED AVERAGE GLUCOSE 157 mg/dL (70-100); HEMOGLOBIN A1c% 7.1 % (4.27-6.07)
[2022-05-22 13:03] LABS: ALBUMIN 3.9 g/dL (3.2-5.5); ALBUMIN/GLOBULIN RATIO 1.1 (1.0-2.2); ALKALINE PHOSPHATASE 50 IU/L (42-121); ALT ALANINE AMINOTRANSFERASE 36 IU/L (10-60); AST ASPARTATE AMINOTRANSFERASE 28 IU/L (10-42); BILIRUBIN,TOTAL 0.9 mg/dL (0.2-1.0); BUN - BLOOD UREA NITROGEN 26 mg/dL (6-20); CALCIUM 9.1 mg/dL (8.5-10.3); CARBON DIOXIDE - CO2 26 mmol/L (21-32); CHLORIDE 100 mmol/L (101-111); CHOL/HDL RATIO 3.9 (<4.4); CHOLESTEROL 155 mg/dL; CREATININE 0.8 mg/dL (0.4-1.0); GFR - MDRD 70 (>89); GLUCOSE 215 mg/dL (70-100); HDL CHOLESTEROL 40 mg/dL; LDL CHOLESTEROL,CALCULATED 84 mg/dL; LDL/HDL RATIO 2.1 (<4.4); POTASSIUM 4.7 mmol/L (3.5-5.0); SODIUM 135 mmol/L (135-145); TOTAL PROTEIN 7.4 g/dL (6.7-8.2); TRIGLYCERIDES 155 mg/dL; VLDL CHOLESTEROL 31 mg/dL
== END 2022-05-22 07:11 | disposition home or self-care (01) ==
LOC: LAB.N 07:10
PROVIDERS: ATTEND Internal Medicine
DX: E11.9 Type 2 diabetes mellitus without complications (principal); I10 Essential (primary) hypertension; F32.A Depression, unspecified
CPT/HCPCS: 36415; 80053; 80061; 82043; 82570; 83036; 83721; 85025

== ENCOUNTER 2022-06-14 11:13 | Outpatient (CLI) | payer MEDICARE, OTHER ==
--- NOTE | 2022-06-15 10:58 | Mammography Report ---
BILATERAL DIGITAL SCREENING MAMMOGRAM 3D/2D: 06/14/2022 CLINICAL: Family history of breast cancer. Routine screening. Comparison is made to exams dated: 11/26/2020 mammogram - [facility], 09/23/2019 ult rasound, 09/23/2019 mammogram - [facility], 09/05/2018 mammogram, 09/03/2017 mammogram, and 08/30/2016 ma mmogram - [facility]. Both breasts are almost entirely fatty (category a/<25% glandular tissue). There is a focal asymmetry in the left breast central to the nipple middle depth. No other significant masses, calcifications, or other findings are seen in either breast. IMPRESSION: INCOMPLETE: NEEDS ADDITIONAL IMAGING EVALUATION The focal asymmetry in the left breast is indeterminate. Additional views with possible ultrasound a re recommended. Based on the Tyrer Cuzick model (a risk assessment model) the patients lifetime risk is 2.7% and her 10 year risk is 2.5%. According to the ACR, ACS, and NCCN guidelines, an annual breast MRI exam timbo g with mammogram is recommended if the patients lifetime risk is 20% or greater. This exam was interpreted at Station ID: [id number]. NOTE: For mammograms, a report in lay terms will be sent to the patient. Approximately 15% of breast malignancies will not be visualized mammographically. In the management of a palpable breast mass, a negative mammogram must not discourage biopsy of a clinically suspicious lesion. Electronically Signed By: Roxanne lira/cal:06/14/2022 16:51:03 ACR BI-RADS Category 0: Incomplete 3340F PARENCHYMAL PATTERN: (F) - The breast(s) demonstrate(s) diffuse fatty replacement. BI-RADS CATEGORY: (0) - 0 Mammo and [place] [id number] Immediate follow-up LATERALITY: (B)
== END 2022-06-14 11:14 | disposition home or self-care (01) ==
LOC: DI.N 11:13
PROVIDERS: ATTEND Internal Medicine
DX: Z12.31 Encounter for screening mammogram for malignant neoplasm of breast (principal); Z80.3 Family history of malignant neoplasm of breast; R92.8 Other abnormal and inconclusive findings on diagnostic imaging of breast

== ENCOUNTER 2022-07-04 12:41 | Outpatient (CLI) | payer MEDICARE, OTHER ==
--- NOTE | 2022-07-05 14:11 | Mammography Report ---
UNILATERAL LEFT DIGITAL DIAGNOSTIC MAMMOGRAM 3D/2D WITH SPOT COMPRESSION: 07/04/2022 CLINICAL: Patient returns today to evaluate a focal asymmetry in the left breast. Comparison is made to exams dated: 06/14/2022 mammogram, 11/26/2020 mammogram - [facility], 09/23/2019 mammogram - [facility], 09/05/2018 mammogram, and 09/03/2017 mammogram - [facility]. The left breast is almost entirely fatty (category a/<25% glandular tissue). There is a 6 mm focal asymmetry in the left breast central to the nipple middle depth confirmed with additional views. IMPRESSION: INCOMPLETE: NEEDS ADDITIONAL IMAGING EVALUATION The focal asymmetry in the left breast is indeterminate. An ultrasound is recommended. Based on the Tyrer Cuzick model (a risk assessment model) the patients lifetime risk is 2.7% and her 10 year risk is 2.5%. According to the ACR, ACS, and NCCN guidelines, an annual breast MRI exam timbo g with mammogram is recommended if the patients lifetime risk is 20% or greater. This exam was interpreted at Station ID: [id number]. NOTE: For mammograms, a report in lay terms will be sent to the patient. Approximately 15% of breast malignancies will not be visualized mammographically. In the management of a palpable breast mass, a negative mammogram must not discourage biopsy of a clinically suspicious lesion. Electronically Signed By: Ronnie Jeffesr M.D. jr/:07/04/2022 13:50:46 ACR BI-RADS Category 0: Incomplete 3340F PARENCHYMAL PATTERN: (F) - The breast(s) demonstrate(s) diffuse fatty replacement. BI-RADS CATEGORY: (0) - 0 Ultrasound [id number] Immediate follow-up LATERALITY: (B)
--- NOTE | 2022-07-05 14:11 | Ultrasound Report ---
LIMITED ULTRASOUND OF LEFT BREAST: 07/04/2022 CLINICAL: Patient returns today to evaluate a focal asymmetry in the left breast. Comparison is made to exams dated: 07/04/2022 mammogram, 06/14/2022 mammogram, 11/26/2020 mammogram - [facility], 09/23/[address] - [facility], 09/05/2018 mammogram, and 09/03/2017 stanley mogram - [facility]. Color flow and real-time ultrasound of the left breast 6-8 o'clock region were performed. Patino scal e images of the real-time examination were reviewed. There is no sonographic correlate for the asymmetry in the left breast central to the nipple middle d epth. No significant abnormalities were seen sonographically in the left breast. IMPRESSION: SUSPICIOUS OF MALIGNANCY Stereotactic biopsy recommended for the asymemtry in the left breast, not seen on concurrently obtain ed ultrasound. This exam was interpreted at Station ID: [id number]. Electronically Signed By: Ronnie Jeffers M.D. jr/:07/04/2022 13:52:20 Ultrasound BI-RADS: 4 Suspicious for malignancy BI-RADS CATEGORY: (4) - 4 Biopsy [id number] Immediate follow-up LATERALITY: (L)
== END 2022-07-04 12:42 | disposition home or self-care (01) ==
LOC: DI 12:41
PROVIDERS: ATTEND Internal Medicine
DX: R92.8 Other abnormal and inconclusive findings on diagnostic imaging of breast (principal)

== ENCOUNTER 2022-07-12 07:51 | Outpatient (CLI) | payer MEDICARE, OTHER ==
[2022-07-12] MEDS ORDERED: LIDOCAINE-MPF 1% 5 ML VIAL ONE (08:11)
[2022-07-12] MEDS ORDERED: LIDOCAINE 1%-EPI 1:100000 20 ML MDV ONE (08:11)
[2022-07-12] MEDS ORDERED: LIDOCAINE 1%-EPI 1:100000 20 ML MDV SUBQ ONE (10:15)
[2022-07-12] MEDS ORDERED: LIDOCAINE-MPF 1% 5 ML VIAL TD ONE (10:16)
--- NOTE | 2022-07-20 08:12 | Mammography Report ---
DIGITAL TOMOGRAPHIC MAMMOGRAPHY GUIDED STEREOTACTIC GUIDED BIOPSY LEFT BREAST USING VACUUM DEVICE WIT H MARKING DEVICE INSERTED AND POST DIGITAL MAMMOGRAPHIC IMAGING- POST-PROCEDURE IMAGING FOR MARKER PL ACEMENT: 07/12/2022 CLINICAL: Left stereotactic biopsy for focal asymmetry. Correlation is made to exams dated: 07/04/2022 mammogram, 06/14/2022 mammogram, and 11/26/2020 mammogram - [facility]. A stereotactic guided biopsy was performed for the asymmetry located in the left breast at 6 o'clock anterior depth. This was described on the previous mammography report. The skin was prepped in the usual manner. Local anesthetic was administered to the access site. A skin josesito was made in the maribell ast. The abnormality was approached from the lateral aspect using an upright digital tomographic stanley mography unit. A 9 gauge biopsy needle was placed adjacent to the abnormality under computer guidanc e and confirmatory stereotactic mammography images were obtained to document needle placement. Once the needle was documented to be in the correct location, six cores were obtained using a vacuum franki demetrius device. The patient received additional local anesthetic during the procedure. A titanium clip was inserted into the biopsy cavity. A skin adhesive and a sterile dressing were applied to the acce ss site. Post procedure digital mammographic imaging demonstrates the location device at the targete d area. The specimens were sent to the laboratory for pathological analysis. IMPRESSION: STEREOTACTIC GUIDED BIOPSY BENIGN Stereotactic guided biopsy of the asymmetry in the left breast at 6 o'clock anterior depth was succes sful with no apparent post procedure complications. Pathology indicates benign apocrine metaplasia a nd fibrocystic changes. Pathology results are concordant with imaging findings. Return to annual mammogram screening schedule is recommended. This exam was interpreted at Station ID: [id number]. Og Atkins M.D. [facility] [place]/:07/19/2022 17:41:42 BI-RADS CATEGORY: () - Mammogram [id number] return to screening LATERALITY: (B)
== END 2022-07-12 07:52 | disposition home or self-care (01) ==
LOC: DI 07:51
PROVIDERS: ATTEND Internal Medicine
DX: N60.12 Diffuse cystic mastopathy of left breast (principal); N60.82 Other benign mammary dysplasias of left breast
CPT/HCPCS: 19081

== ENCOUNTER 2022-10-18 07:55 | Outpatient (CLI) | payer MEDICARE, OTHER ==
[2022-10-18 12:06] LABS: ALBUMIN 3.8 g/dL (3.2-5.5); ALBUMIN/GLOBULIN RATIO 1.2 (1.0-2.2); BILIRUBIN,TOTAL 0.5 mg/dL (0.2-1.0); CALCIUM 8.8 mg/dL (8.5-10.3); CREATININE 0.9 mg/dL (0.4-1.0); POTASSIUM 4.5 mmol/L (3.5-5.0); TOTAL PROTEIN 7.1 g/dL (6.7-8.2)
[2022-10-18 12:16] LABS: ESTIMATED AVERAGE GLUCOSE 134 mg/dL (70-100); HEMOGLOBIN A1c% 6.3 % (4.27-6.07)
[2022-10-18 12:23] LABS: THYROID STIMULATING HORMONE 4.77 uIU/mL (0.34-5.60)
[2022-10-18 12:24] LABS: MICROALBUM/CREATININE RATIO,UR 3.5 ug/mg (<30.0); MICROALBUMIN,URINE 0.4 mg/dL (0-300.0)
== END 2022-10-18 07:56 | disposition home or self-care (01) ==
LOC: LAB.N 07:55
PROVIDERS: ATTEND Internal Medicine
DX: E11.9 Type 2 diabetes mellitus without complications (principal); F33.9 Major depressive disorder, recurrent, unspecified
CPT/HCPCS: 36415; 80053; 82043; 82570; 83036; 84443

== ENCOUNTER 2022-11-05 12:08 | Emergency (ER) | payer MEDICARE, OTHER ==
[2022-11-05] MEDS ORDERED: SODIUM CHLORIDE 0.9% 1,000 ML IV STA (12:38)
[2022-11-05 13:12] LABS: BASOPHILS # (AUTO) 0.1 10^3/uL (0.0-0.1); BASOPHILS % (AUTO) 0.9 %; EOSINOPHILS # (AUTO) 0.4 10^3/uL (0.0-0.7); EOSINOPHILS % (AUTO) 5.1 %; HCT - HEMATOCRIT 41.6 % (37.0-47.0); HGB - HEMOGLOBIN 13.8 g/dL (12.0-16.0); LYMPHOCYTES # (AUTO) 1.9 10^3/uL (1.5-3.5); LYMPHOCYTES % (AUTO) 27.2 %; MEAN CORPUSCULAR HEMOGLOBIN 29.6 pg (27.0-31.0); MEAN CORPUSCULAR HGB CONC 33.2 g/dL (32.0-36.0); MEAN CORPUSCULAR VOLUME 89.1 fL (81.0-99.0); MEAN PLATELET VOLUME 9.9 fL (7.9-10.8); MONOCYTES # (AUTO) 0.6 10^3/uL (0.0-1.0); MONOCYTES % (AUTO) 8.2 %; NEUTROPHILS % (AUTO) 58.3 %; PLT - PLATELET COUNT 270 10^3/uL (130-450); RED BLOOD COUNT 4.67 10^6/uL (4.20-5.40); RED CELL DISTRIBUTION WIDTH 13.3 % (12.0-15.0); WHITE BLOOD COUNT 6.9 x10^3/uL (4.8-10.8)
[2022-11-05 13:22] LABS: ALBUMIN 4.1 g/dL (3.2-5.5); ALBUMIN/GLOBULIN RATIO 1.1 (1.0-2.2); BILIRUBIN,TOTAL 0.6 mg/dL (0.2-1.0); CALCIUM 9.7 mg/dL (8.5-10.3); CREATININE 0.9 mg/dL (0.4-1.0); TOTAL PROTEIN 7.7 g/dL (6.7-8.2)
[2022-11-05] MEDS ORDERED: MECLIZINE 12.5 MG TABLET PO STA (13:37)
[2022-11-05] MEDS ORDERED: ONDANSETRON 4 MG/2 ML VIAL IVP STA (13:37)
--- NOTE | 2022-11-05 14:00 | ED Physician Documentation ---
History of Present Illness - Stated complaint Stated Complaint: DIZZY/LIGHTHEADED - Chief complaint Chief Complaint: General - History obtained from History obtained from: Patient - Additonal information Additional information: The patient comes to the emergency department chief complaint of feeling dizzy and nearly fainting. She states she has had diarrhea for 2 weeks which is longer than usual, and that her diarrhea finally stopped 2 days ago. However, she now began to feel lightheaded and dizzy, which she describes as a spinning sensation. At the same time, she states the lightheadedness was severe enough that she thought she was going to pass out. The patient did not actually vomit. The patient has never had vertigo before. She denies head injury. No new medications. No other complaints at this time. She states that she felt actually quite a bit better after she got here, but then when she sat up, hit her again. 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 - Present Medications Home Medications: Ambulatory Orders Medication Instructions Recorded Confirmed Losartan Potassium 25 mg PO DAILY 09/17/17 10/18/20 [place]-3/Dha/Epa/Fish Oil [Fish Oil 1 each PO DAILY 09/17/17 10/18/20 1,000 mg Softgel] Potassium &Magnesium Aspartate [Ra 1 each PO DAILY 09/17/17 10/18/20 Potassium-Magnesium Asp 250] Glimepiride [Amaryl] 2 mg PO 0800 10/18/20 10/18/20 Meclizine HCl [Dramamine] 25 - 50 mg PO Q6H PRN #30 tablet 11/05/22 - Allergies Allergies/Adverse Reactions: Allergies Allergy/AdvReac Type Severity Reaction Status Date / Time acetaminophen [From Vicodin] AdvReac Intermediate cannot Verified 10/13/19 16:52 wake up hydrocodone [From Vicodin] AdvReac Intermediate cannot Verified 10/13/19 16:52 wake up - Social History Does the pt smoke?: No Smoking Status: Never smoker Does the pt drink ETOH?: No Does the pt have substance abuse?: No - Immunizations Immunizations are current?: Yes PD ED PE NORMAL - Vitals Vital signs reviewed: Yes - General General: Alert and oriented X 3, No acute distress, Well developed/nourished - HEENT HEENT: Atraumatic, PERRL, EOMI, Moist mucous membranes - Neck Neck: Supple, no meningeal sign - Cardiac Cardiac: RRR, No murmur, Strong equal pulses - Respiratory Respiratory: No respiratory distress, Clear bilaterally - Abdomen Abdomen: Soft, Non tender, Non distended - Derm Derm: Normal color, Warm and dry, No rash - Extremities Extremities: No deformity, No edema - Neuro Neuro: Alert and oriented X 3 - Psych Psych: Normal mood, Normal affect Results - Vitals Vitals: Vital Signs - 24 hr 11/05/22 15:17 Heart Rate 61 Respiratory 18 Rate Blood Pressure 165/51 H O2 Saturation 96 Oxygen O2 Source Room air - EKG (time done) 1220 EKG releavant findings:: EKG personally interpreted by author of this note. Relevant findings are: Rate: Rate (enter#) (61) [place]: Normal Intervals: Normal [place] QRS: Normal Ischemia: Normal ST segments Compare to prior EKG: Old EKG unavailable Computer interpretation: Agree with computer - Labs Labs: Laboratory Tests 11/05/22 11/05/22 11/05/22 12:37 12:56 12:56 WBC 6.9 RBC 4.67 Hgb 13.8 Hct 41.6 MCV 89.1 MCH 29.6 MCHC 33.2 RDW 13.3 Plt Count 270 MPV 9.9 Neut # (Auto) 4.0 Lymph # (Auto) 1.9 [place] # (Auto) 0.6 Eos # (Auto) 0.4 Baso # (Auto) 0.1 Absolute Nucleated RBC 0.00 Nucleated RBC % 0.0 Sodium 139 Potassium 4.0 Chloride 105 Carbon Dioxide 26 Anion Gap 8.0 BUN 20 Creatinine 0.9 Estimated GFR (MDRD) 61 L Glucose 146 H POC Whole Bld Glucose 140 H Calcium 9.7 Total Bilirubin 0.6 AST 27 ALT 28 Alkaline Phosphatase 48 Total Protein 7.7 Albumin 4.1 Globulin 3.6 Albumin/Globulin Ratio 1.1 Lipase 53 H PD Medical Decision Making - ED course Complexity details: reviewed results, re-evaluated patient, considered different ial, d/w patient ED course: Patient was treated symptomatically with IV fluids, meclizine, and Zofran. She was worked up with laboratory studies including CBC and ER abdominal panel, and EKG was also performed. The patient's work-up was unremarkable. She was found to be feeling much better on reevaluation and felt she was stable for discharge home. We have discussed home management of symptoms as well as the usual indications for follow-up and return. Departure - Departure Disposition: 01 Home, Self Care Clinical Impression: Vertigo, Lightheadedness Condition: Stable Instructions: ED BPV Vertigo, ED Near Syncope Unkn Prescriptions: Meclizine HCl [Dramamine] 25 - 50 mg PO Q6H PRN #30 tablet PRN Reason: Vertigo Comments: Your labs look great today, as does your EKG. Most likely, you have been somewhat dehydrated from your diarrhea. The vertigo that you have been experiencing is consistent with a benign positional vertigo, which comes from your inner ear nerves that since motion and balance. There are variety of potential causes for this, but usually, flareups resolve on their own, given time. You should be sure you drink plenty of fluids and when you rise from a laying or sitting position, do so slowly and with care to minimize the sudden and severe onset of dizziness. A prescription for antivertigo medication has been electronically transmitted to the [facility] pharmacy in [place]. You may pick this up this afternoon and take as needed. Please schedule follow-up appointment with your primary doctor as needed. Discharge Date/Time: 11/05/22 15:37
[2022-11-05 15:19] VITALS: BP 165/51
== END 2022-11-05 15:37 | disposition home or self-care (01) ==
LOC: ED 12:08
DX: R42 Dizziness and giddiness (principal); I10 Essential (primary) hypertension; E78.00 Pure hypercholesterolemia, unspecified; E11.9 Type 2 diabetes mellitus without complications; Z79.84 Long term (current) use of oral hypoglycemic drugs
CPT/HCPCS: 36415; 80053; 83690; 85025; 93005; 96374; 99283; 99284; A9270

== ENCOUNTER 2023-03-28 07:56 | Outpatient (CLI) | payer MEDICARE, OTHER ==
[2023-03-28 12:50] LABS: ALBUMIN 4.1 g/dL (3.2-5.5); ALBUMIN/GLOBULIN RATIO 1.5 (1.0-2.2); ALKALINE PHOSPHATASE 48 IU/L (42-121); ALT ALANINE AMINOTRANSFERASE 19 IU/L (10-60); AST ASPARTATE AMINOTRANSFERASE 19 IU/L (10-42); BILIRUBIN,TOTAL 0.6 mg/dL (0.2-1.0); BUN - BLOOD UREA NITROGEN 28 mg/dL (6-20); CALCIUM 9.8 mg/dL (8.5-10.3); CARBON DIOXIDE - CO2 30 mmol/L (21-32); CHLORIDE 103 mmol/L (101-111); CHOL/HDL RATIO 4.2 (<4.4); CHOLESTEROL 176 mg/dL; GFR - MDRD 54 (>89); GLUCOSE 176 mg/dL (74-104); HDL CHOLESTEROL 42 mg/dL; LDL CHOLESTEROL,CALCULATED 86 mg/dL; SODIUM 138 mmol/L (135-145); TOTAL PROTEIN 6.9 g/dL (6.4-8.9); TRIGLYCERIDES 238 mg/dL (48-352); VLDL CHOLESTEROL 48 mg/dL
[2023-03-28 12:56] LABS: ESTIMATED AVERAGE GLUCOSE 128 mg/dL (70-100); HEMOGLOBIN A1c% 6.1 % (4.27-6.07)
== END 2023-03-28 07:57 | disposition home or self-care (01) ==
LOC: LAB.N 07:56
PROVIDERS: ATTEND Internal Medicine
DX: I10 Essential (primary) hypertension (principal); E78.5 Hyperlipidemia, unspecified; E11.9 Type 2 diabetes mellitus without complications
CPT/HCPCS: 36415; 80053; 80061; 83036; 83721

== ENCOUNTER 2023-04-07 12:35 | Emergency (ER) | payer MEDICARE, OTHER ==
[2023-04-07 13:14] LABS: BASOPHILS # (AUTO) 0.1 10^3/uL (0.0-0.1); BASOPHILS % (AUTO) 0.9 %; EOSINOPHILS # (AUTO) 0.5 10^3/uL (0.0-0.7); EOSINOPHILS % (AUTO) 6.3 %; HCT - HEMATOCRIT 39.4 % (37.0-47.0); HGB - HEMOGLOBIN 12.9 g/dL (12.0-16.0); LYMPHOCYTES # (AUTO) 2.6 10^3/uL (1.5-3.5); LYMPHOCYTES % (AUTO) 33.2 %; MEAN CORPUSCULAR HEMOGLOBIN 30.2 pg (27.0-31.0); MEAN CORPUSCULAR HGB CONC 32.7 g/dL (32.0-36.0); MEAN CORPUSCULAR VOLUME 92.3 fL (81.0-99.0); MEAN PLATELET VOLUME 9.3 fL (7.9-10.8); MONOCYTES # (AUTO) 0.6 10^3/uL (0.0-1.0); MONOCYTES % (AUTO) 7.2 %; NEUTROPHILS # (AUTO) 4.1 10^3/uL (1.5-6.6); NEUTROPHILS % (AUTO) 52.1 %; PLT - PLATELET COUNT 284 10^3/uL (130-450); RED BLOOD COUNT 4.27 10^6/uL (4.20-5.40); RED CELL DISTRIBUTION WIDTH 13.2 % (12.0-15.0); WHITE BLOOD COUNT 7.8 x10^3/uL (4.8-10.8)
--- NOTE | 2023-04-07 13:36 | XRAY Report ---
PROCEDURE: Chest 1 View X-Ray INDICATIONS: Chest pain TECHNIQUE: One view of the chest was acquired. COMPARISON: None. FINDINGS: Surgical changes and devices: None. Lungs and pleura: No pleural effusions or pneumothorax. Lungs are clear. Mediastinum: Mediastinal contours appear normal. Heart size is normal. Bones and chest wall: No suspicious bony lesions. Overlying soft tissues appear unremarkable. IMPRESSION: No acute cardiopulmonary process. Reviewed by: Wellington Jeffers MD on 04/07/2023 12:35 PM [facility] Approved by: Wellington Jeffers MD on 04/07/2023 12:35 PM [facility] Station ID: [id number]
[2023-04-07 13:37] LABS: ALBUMIN 4.4 g/dL (3.2-5.5); ALBUMIN/GLOBULIN RATIO 1.5 (1.0-2.2); BILIRUBIN,TOTAL 0.6 mg/dL (0.2-1.0); CALCIUM 9.8 mg/dL (8.5-10.3); CREATININE 1.1 mg/dL (0.6-1.3); POTASSIUM 4.3 mmol/L (3.5-4.5); TOTAL PROTEIN 7.4 g/dL (6.4-8.9)
[2023-04-07 13:44] LABS: TROPONIN I HIGH SENSITIVITY 8.1 ng/L (2.3-14.8)
--- NOTE | 2023-04-07 15:18 | ED Physician Documentation ---
PD HPI CHEST PAIN - Stated complaint Stated Complaint: CHEST PX - Chief complaint Chief Complaint: Cardiac - History obtained from History obtained from: Patient - Additional information Additional information: 77-year-old woman with history of diabetes, no history of coronary disease presents for the evaluation of chest pain. For the last 2 weeks she has had very brief, about 1 second of stabbing pain near the superior part of her left breast. It lasted a little longer today about 1 minute. It is nonexertional. She has been overdoing it with the [employer] decorations and her thinks she has been just moving around too much. She also has some back spasm with this. 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 - Present Medications Home Medications: Ambulatory Orders Medication Instructions Recorded Confirmed Losartan Potassium 25 mg PO DAILY 09/17/17 10/18/20 [place]-3/Dha/Epa/Fish Oil [Fish Oil 1 each PO DAILY 18 10/18/20 1,000 mg Softgel] Potassium &Magnesium Aspartate [Ra 1 each PO DAILY 09/17/17 10/18/20 Potassium-Magnesium Asp 250] Glimepiride [Amaryl] 2 mg PO 0800 10/18/20 10/18/20 Meclizine HCl [Dramamine] 25 - 50 mg PO Q6H PRN #30 tablet 11/05/22 methocarbamoL [Robaxin] 500 mg PO Q6H PRN #20 tablet 04/07/23 - Allergies Allergies/Adverse Reactions: Allergies Allergy/AdvReac Type Severity Reaction Status Date / Time acetaminophen [From Vicodin] AdvReac Intermediate cannot Verified 10/13/19 16:52 wake up hydrocodone [From Vicodin] AdvReac Intermediate cannot Verified 10/13/19 16:52 wake up - Social History Does the pt smoke?: No Smoking Status: Never smoker Does the pt drink ETOH?: No Does the pt have substance abuse?: No - Immunizations Immunizations are current?: Yes PD ED PE NORMAL - Vitals Vital signs reviewed: Yes - General General: Alert and oriented X 3, No acute distress - Neck Neck: Supple, no meningeal sign, No bony TTP - Cardiac Cardiac: RRR, No murmur, Strong equal pulses (Radial) - Respiratory Respiratory: No respiratory distress, Clear bilaterally - Abdomen Abdomen: Normal bowel sounds, Soft, Non tender - Derm Derm: Normal color, Warm and dry - Extremities Extremities: Other (2+ pitting pedal edema, chronic and unchanged per patient without calf tenderness.) - Neuro Neuro: Alert and oriented X 3 Eye Opening: Spontaneous Motor: Obeys Commands Verbal: Oriented GCS Score: 15 Results - Vitals Vitals: Vital Signs - 24 hr 04/07/23 12:48 Temperature 36.3 C L Heart Rate 96 Respiratory 18 Rate Blood Pressure 164/54 H O2 Saturation 96 Oxygen O2 Source Room air - EKG (time done) 1253 EKG releavant findings:: EKG personally interpreted by author of this note. Relevant findings are: Rate: Rate (enter#) (68) Rhythm: NSR, LAE [place]: Normal Intervals: Other (ivcd) Ischemia: Non specific changes. No: ST elevation c/w ischemia, ST depression - Labs Labs: Laboratory Tests 04/07/23 04/07/23 13:08 13:08 WBC 7.8 RBC 4.27 Hgb 12.9 Hct 39.4 MCV 92.3 MCH 30.2 MCHC 32.7 RDW 13.2 Plt Count 284 MPV 9.3 Neut # (Auto) 4.1 Lymph # (Auto) 2.6 [place] # (Auto) 0.6 Eos # (Auto) 0.5 Baso # (Auto) 0.1 Absolute Nucleated RBC 0.00 Nucleated RBC % 0.0 Sodium 140 Potassium 4.3 Chloride 102 Carbon Dioxide 32 Anion Gap 6.0 BUN 22 H Creatinine 1.1 Estimated GFR (MDRD) 48 L Glucose 144 H Calcium 9.8 Total Bilirubin 0.6 AST 22 ALT 25 Alkaline Phosphatase 58 Troponin I High Sens 8.1 Total Protein 7.4 Albumin 4.4 Globulin 3.0 Albumin/Globulin Ratio 1.5 Lipase 28 - Rads (name of study) Single view chest x-ray is unremarkable Relevant Findings:: Final report received, EMP independent interpretation of test PD Medical Decision Making - ED course ED course: 77-year-old woman with very atypical chest pain. Workup in the emergency department negative with normal CBC, CMP, troponin. She would like a muscle relaxer for her back. Given the combination of chest and back pain aortic dissection was considered, that said that her chest pain is very fleeting and intermittent and her back pain is associated with movement. Nothing in the history or physical to suggest PE. Departure - Departure Disposition: Home, Self Care Clinical Impression: Back spasm Chest pain Qualifiers: Chest pain type: unspecified Qualified Code(s): R07.9 - Chest pain, unspecified Condition: Good Record reviewed to determine appropriate education?: Yes Instructions: ED Chest Pain NonCardiac Prescriptions: methocarbamoL [Robaxin] 500 mg PO Q6H PRN #20 tablet PRN Reason: Spasms Comments: I sent your prescription electronically to the [facility] in [place]. Return for any worsening symptoms. Follow-up with your doctor calling Sunday for next available appointment. Forms: PCP List
[2023-04-07 15:31] VITALS: BP 119/63; O2SAT 99
== END 2023-04-07 15:27 | disposition home or self-care (01) ==
LOC: ED 12:35
DX: R07.9 Chest pain, unspecified (principal); M62.830 Muscle spasm of back; I10 Essential (primary) hypertension; E11.9 Type 2 diabetes mellitus without complications; Z79.84 Long term (current) use of oral hypoglycemic drugs
CPT/HCPCS: 36415; 80053; 83690; 84484; 85025; 93005; 99284

== ENCOUNTER 2023-05-17 22:21 | Emergency (ER) | payer MEDICARE, OTHER ==
[2023-05-17] MEDS ORDERED: SODIUM CHLORIDE 0.9% 1,000 ML IV STA (22:41)
[2023-05-17] MEDS ORDERED: DROPERIDOL 5 MG/2 ML VIAL IVP STA (22:41)
[2023-05-17 22:56] LABS: BASOPHILS # (AUTO) 0.1 10^3/uL (0.0-0.1); BASOPHILS % (AUTO) 0.6 %; EOSINOPHILS # (AUTO) 0.3 10^3/uL (0.0-0.7); EOSINOPHILS % (AUTO) 3.3 %; HCT - HEMATOCRIT 42.9 % (37.0-47.0); HGB - HEMOGLOBIN 14.1 g/dL (12.0-16.0); LYMPHOCYTES # (AUTO) 2.7 10^3/uL (1.5-3.5); LYMPHOCYTES % (AUTO) 33.7 %; MEAN CORPUSCULAR HEMOGLOBIN 29.7 pg (27.0-31.0); MEAN CORPUSCULAR HGB CONC 32.9 g/dL (32.0-36.0); MEAN CORPUSCULAR VOLUME 90.5 fL (81.0-99.0); MEAN PLATELET VOLUME 9.5 fL (7.9-10.8); MONOCYTES # (AUTO) 0.6 10^3/uL (0.0-1.0); MONOCYTES % (AUTO) 7.8 %; NEUTROPHILS # (AUTO) 4.3 10^3/uL (1.5-6.6); NEUTROPHILS % (AUTO) 54.3 %; PLT - PLATELET COUNT 294 10^3/uL (130-450); RED BLOOD COUNT 4.74 10^6/uL (4.20-5.40); RED CELL DISTRIBUTION WIDTH 12.6 % (12.0-15.0); WHITE BLOOD COUNT 7.9 x10^3/uL (4.8-10.8)
--- NOTE | 2023-05-17 23:04 | ED Physician Documentation ---
History of Present Illness - Stated complaint Stated Complaint: DIZZY/VOMIT - Chief complaint Chief Complaint: Neuro - History obtained from History obtained from: Patient, Family - History of Present Illness Timing: Yesterday Pain level max: 0 Pain level now: 0 - Additonal information Additional information: Patient is a 77-year-old female with a history of diabetes who presents to the emergency department complaining of the room spinning. She states been ongoing since yesterday intermittently but worse today. Took her usual meclizine and did feel slightly better but is still having nausea. Had vomiting earlier. No headache. No trauma. No falls. Feels similar to prior episodes of vertigo. She states that the dizziness is improving but she still is quite nauseated. No focal weakness or numbness. No slurred speech. No facial droop. 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 - Present Medications Home Medications: Ambulatory Orders Medication Instructions Recorded Confirmed Losartan Potassium 25 mg PO DAILY 09/17/17 10/18/20 [place]-3/Dha/Epa/Fish Oil [Fish Oil 1 each PO DAILY 09/17/17 10/18/20 1,000 mg Softgel] Potassium &Magnesium Aspartate [Ra 1 each PO DAILY 09/17/17 10/18/20 Potassium-Magnesium Asp 250] Glimepiride [Amaryl] 2 mg PO 0800 10/18/20 10/18/20 Meclizine HCl [Dramamine] 25 - 50 mg PO Q6H PRN #30 tablet 11/05/22 methocarbamoL [Robaxin] 500 mg PO Q6H PRN #20 tablet 04/07/23 - Allergies Allergies/Adverse Reactions: Allergies Allergy/AdvReac Type Severity Reaction Status Date / Time acetaminophen [From Vicodin] AdvReac Intermediate cannot Verified 05/17/23 22:23 wake up hydrocodone [From Vicodin] AdvReac Intermediate cannot Verified 05/17/23 22:23 wake up - Social History Does the pt smoke?: No Smoking Status: Never smoker Does the pt drink ETOH?: No Does the pt have substance abuse?: No - Immunizations Immunizations are current?: Yes PD ED PE NORMAL - Vitals Vital signs reviewed: Yes - General General: Alert and oriented X 3, No acute distress, Well developed/nourished - HEENT HEENT: Moist mucous membranes - Neck Neck: Supple, no meningeal sign - Cardiac Cardiac: RRR - Respiratory Respiratory: No respiratory distress, Clear bilaterally - Abdomen Abdomen: Soft, Non tender, Non distended - Back Back: No spinal TTP - Derm Derm: Warm and dry, No rash - Extremities Extremities: No edema - Neuro Neuro: Alert and oriented X 3, relationship mgr 2-12 intact, No motor deficit, No sensory deficit, Other (Positive Hallpike to the left, horizontal nystagmus.) Eye Opening: Spontaneous Motor: Obeys Commands Verbal: Oriented GCS Score: 15 - Psych Psych: Normal mood, Normal affect Results - Vitals Vitals: Vital Signs - 24 hr 05/17/23 22:23 Temperature 36.5 C Heart Rate 63 Respiratory 18 Rate Blood Pressure 200/60 H O2 Saturation 96 Oxygen O2 Source Room air - Labs Labs: Laboratory Tests 05/17/23 22:50 WBC 7.9 RBC 4.74 Hgb 14.1 Hct 42.9 MCV 90.5 MCH 29.7 MCHC 32.9 RDW 12.6 Plt Count 294 MPV 9.5 Neut # (Auto) 4.3 Lymph # (Auto) 2.7 [place] # (Auto) 0.6 Eos # (Auto) 0.3 Baso # (Auto) 0.1 Absolute Nucleated RBC 0.00 Nucleated RBC % 0.0 PD Medical Decision Making - ED course Complexity details: considered differential, d/w patient, d/w family ED course: Patient with what appears to be her usual vertigo, but given her vomiting and history of diabetes, laboratory testing was ordered. IV fluids given and a dose of droperidol was given. Patient will be reassessed by Dr. Morales, if the patient is symptom-free, suspect that she can go home with her usual vertigo medications. If she is still having symptoms may need further workup including neuroimaging. This document was made in part using voice recognition software. While efforts are made to proofread this document, sound alike and grammatical errors may occur. Departure - Departure Clinical Impression: Vertigo Condition: Stable
[2023-05-17 23:13] LABS: ALBUMIN 4.1 g/dL (3.2-5.5); ALBUMIN/GLOBULIN RATIO 1.4 (1.0-2.2); BILIRUBIN,TOTAL 0.5 mg/dL (0.2-1.0); CALCIUM 9.4 mg/dL (8.5-10.3); CREATININE 0.8 mg/dL (0.6-1.3); POTASSIUM 3.7 mmol/L (3.5-4.5)
--- NOTE | 2023-05-18 00:17 | ED Physician Documentation ---
ED Addendum - Addendum Addendum: 05/18/23 00:17 Patient endorsed to me by Dr. Art pending reevaluation. Her labwork including cbc, abdominal panel were benign and cardiac monitoring in the ED uncovered no arrhythmia. Heart, lung and neuro exam benign. She feels better s/p droperidol and IVF and requesting to go home. She will f/u outpatient with Dr. Stark. Strict return precautions given. 05/18/23 00:17 Impression 1. vertigo 2. nausea Disposition home Condition stable
[2023-05-18 00:39] VITALS: BP 199/96; O2SAT 98
== END 2023-05-18 00:26 | disposition home or self-care (01) ==
LOC: ED 22:21
DX: R42 Dizziness and giddiness (principal); R11.0 Nausea; E11.9 Type 2 diabetes mellitus without complications; I10 Essential (primary) hypertension; E78.00 Pure hypercholesterolemia, unspecified; Z79.899 Other long term (current) drug therapy; Z79.84 Long term (current) use of oral hypoglycemic drugs
CPT/HCPCS: 36415; 80053; 85025; 96374; 99283

== ENCOUNTER 2023-07-30 07:04 | Outpatient (CLI) | payer MEDICARE, OTHER ==
[2023-07-30 12:24] LABS: CALCIUM 9.9 mg/dL (8.5-10.3); CREATININE 0.9 mg/dL (0.6-1.3); POTASSIUM 4.1 mmol/L (3.5-4.5)
[2023-07-30 12:37] LABS: ESTIMATED AVERAGE GLUCOSE 123 mg/dL (70-100); HEMOGLOBIN A1c% 5.9 % (4.27-6.07)
== END 2023-07-30 07:05 | disposition home or self-care (01) ==
LOC: LAB.N 07:04
PROVIDERS: ATTEND Internal Medicine
DX: E11.9 Type 2 diabetes mellitus without complications (principal)
CPT/HCPCS: 36415; 80048; 83036

== ENCOUNTER 2023-08-15 12:27 | Outpatient (CLI) | payer MEDICARE, OTHER ==
--- NOTE | 2023-08-16 09:29 | Mammography Report ---
BILATERAL DIGITAL SCREENING MAMMOGRAM 3D/2D: 08/15/2023 CLINICAL: Routine screening. Family history of breast cancer. Comparison is made to exams dated: 07/04/2022 mammogram, 06/14/2022 mammogram, 11/26/2020 mammogram, and 07/12/2022 stereotactic biopsy - [facility]. Both breasts are almost entirely fatty (category a/<25% glandular tissue). There are benign vascular calcifications in the right breast. There also are benign post operative f indings in the left breast. No significant masses, calcifications, or other findings are seen in either breast. There has been no significant interval change. IMPRESSION: BENIGN There is no mammographic evidence of malignancy. A 1 year screening mammogram is recommended. Based on the Tyrer Cuzick model (a risk assessment model) the patient's lifetime risk is 2.6% and her 10 year risk is 2.6%. According to the ACR, ACS, and NCCN guidelines, an annual breast MRI exam timbo g with mammogram is recommended if the patient's lifetime risk is 20% or greater. This exam was interpreted at Station ID: [id number]. NOTE: For mammograms, a report in lay terms will be sent to the patient. Approximately 15% of breast malignancies will not be visualized mammographically. In the management of a palpable breast mass, a negative mammogram must not discourage biopsy of a clinically suspicious lesion. Electronically Signed By: Og [email or web address]:08/15/2023 17:15:17 letter sent: No_Letter ACR BI-RADS Category 2: Benign Finding(s) 3342F PARENCHYMAL PATTERN: (F) - The breast(s) demonstrate(s) diffuse fatty replacement. BI-RADS CATEGORY: (2) - 2 RECOMMENDATION: (ANNUAL) - Recommend routine annual screening mammography. [id number] 1 year screening LATERALITY: (B)
== END 2023-08-15 12:28 | disposition home or self-care (01) ==
LOC: DI.N 12:27
PROVIDERS: ATTEND Internal Medicine
DX: Z12.31 Encounter for screening mammogram for malignant neoplasm of breast (principal); Z80.3 Family history of malignant neoplasm of breast

== ENCOUNTER 2023-12-18 08:20 | Outpatient (CLI) | payer MEDICARE, OTHER ==
[2023-12-18 18:36] LABS: CALCIUM 9.1 mg/dL (8.5-10.3); POTASSIUM 4.5 mmol/L (3.5-4.5)
[2023-12-18 21:20] LABS: ESTIMATED AVERAGE GLUCOSE 128 mg/dL (70-100); HEMOGLOBIN A1c% 6.1 % (4.27-6.07)
== END 2023-12-18 08:21 | disposition home or self-care (01) ==
LOC: LAB.N 08:20
PROVIDERS: ATTEND Internal Medicine
DX: E11.9 Type 2 diabetes mellitus without complications (principal)
CPT/HCPCS: 36415; 80048; 83036